=== PATIENT | female | born 1940 | race Caucasian/White ===

== ENCOUNTER → 2024-02-08 12:27 | Outpatient (REF) | payer MEDICARE, OTHER, SELFPAY ==
[2024-02-08 13:24] LABS: % Basophils 0.4 % (0-2); % Eosinophils 2.8 % (0-6); % Immature Granulocytes 0.6 % (0-0.5); % Lymphocytes 23.6 % (20.5-51.1); % Monocytes 7.8 % (1.7-9.3); % Neutrophils 64.8 % (42.2-75.2); Absolute Eosinophils 0.2 10^3/uL (0-0.7); Absolute Immature Granulocytes 0.1 10^3/uL (0-0.05); Absolute Lymphocytes 1.9 10^3/uL (1.2-3.4); Absolute Monocytes 0.6 10^3/uL (0.1-0.6); Absolute Neutrophils 5.1 10^3/uL (1.4-6.5); Hematocrit 45.2 % (37.0-47.0); Hemoglobin 15.5 g/dL (12.0-16.0); Mean Corp Hgb Conc. 34.3 g/dL (33.0-37.0); Mean Corpuscular Hgb 30.5 pg (27.0-31.0); Mean Corpuscular Volume 88.8 fL (81.0-99.0); Mean Platelet Volume 11.7 fL (7.4-10.4); Nucleated Red Blood Cells % 0 %; Platelet Count 239 10^3/uL (130-400); Red Blood Cell Count 5.09 10^6/uL (4.20-5.40); Red Cell Dist. Width 12.7 % (11.5-14.5); White Blood Cell Count 7.9 10^3/uL (4.8-10.8)
[2024-02-08 13:38] LABS: ALT (SGPT) 18 U/L (0-35); AST (SGOT) 23 U/L (14-36); Albumin 4.7 g/dl (3.5-5.0); Alkaline Phosphatase 98 U/L (38-126); Blood Urea Nitrogen 21 mg/dl (7-17); Calcium 9.7 mg/dl (8.4-10.2); Carbon Dioxide 24 mmol/L (22-30); Chloride 105 mmol/L (98-107); Glucose 87 mg/dl (70-99); Magnesium 1.8 mg/dl (1.6-2.3); Potassium 3.9 mmol/L (3.5-5.1); Sodium 138 mmol/L (135-145); Total Bilirubin 0.8 mg/dl (0.2-1.3); Total Protein 7.1 g/dl (6.3-8.2); eGFR 45.48
== END ==
LOC: SDSPAT 12:27
PROVIDERS: ATTENDING PHYSICIAN Internal Medicine Cardiovascular Disease; FAMILY PHYSICIAN Internal Medicine; OTHER PHYSICIAN Internal Medicine Cardiovascular Disease
DX: Z01.818 Encounter for other preprocedural examination (principal); I48.91 Unspecified atrial fibrillation; I48.92 Unspecified atrial flutter
CPT/HCPCS: 36415; 75572; 80053; 83735; 85025; 85610; 86850; 86900; 86901; 93005; Q9967

== ENCOUNTER 2024-02-26 05:59 | Day surgery (SDC) | payer MEDICARE, OTHER, SELFPAY ==
[2024-02-08 13:09] VITALS: BMI 29.7
[2024-02-26] VITALS (15 sets, daily range): BP systolic 98–130; BP diastolic 52–98
--- NOTE | 2024-02-26 07:43 | ITS.CL.ABL ---
Plumber Maintenance - Ablation
Ablation
Procedure Report:
Primary Environmental Officer: Sulaiman Urbina MD
Procedure Date: 02/26/2024
Patient History:
Patient is a pleasant 83-year-old female with a past medical history significant for hypertension, hypercholesterolemia, COPD, symptomatic persistent atrial fibrillation, GERD, arthritis presenting for elective electrophysiology study and cryo
pulmonary vein isolation for symptomatic persistent atrial fibrillation
Indication:
Persistent atrial fibrillation, symptomatic
Arrhythmia Specific History:
Prior Medical Therapies for Rate and Rhythm Control:
X Beta-nafisa
X Calcium channel-nafisa
[ ] Amiodarone
[ ] Dronederone
[ ] Sotalol
[ ] Flecainide
[ ] Dofetilide
[ ] Options limited by bradycardia
[ ] Options limited by comorbid renal disease
Prior Procedural Therapies for AF/AFL:
[ ] Cardioversion
[ ] Pulmonary Vein Isolation
[ ] Posterior Wall Isolation
[ ] Additional lines (Specify)
[ ] Surgical Lao-MAZE or PVI (Specify)
Procedure Performed:
X AF ablation procedure (56156) -- includes LA/CS pacing, trans-septal, 3D mapping, + ICE
[ ] +IV drug (27737)
[ ] +Other Arrhythmia (41920)
[ ] +Other AF Line/ablation (90688)
Risks and expected recovery has been explained in detail. Alternative options have been explored, and in a shared-decision making fashion we have decided that this was the most appropriate procedure.
Method
NPO status confirmed. Grounding pad applied. Defibrillator pads applied. Continuous surface ECG, pulse oximetry, and blood pressure were monitored. Procedure was performed under general anesthesia, with anesthesia services.
Both groins were clipped, prepped with Chloraprep, and draped in sterile fashion. Time out was called. Local anesthesia administered with bupivacaine. The right and left femoral veins were accessed for catheter placement, using ultrasound guidance,
micro-puncture needle/wire, and modified seldinger technique. 3 sheaths were placed. The following catheters were used:
[ ] Tacticath SE (D/F Curve) ablation catheter
X Viewflex 9Fr ICE catheter
X Inquiry decapolar 6Fr diagnostic catheter
[ ] CRD Hex 6Fr
X Arctic Front Advance Cryoballoon (28mm)
X Achieve Advance mapping catheter (15mm)
[ ] Acuson AcuNav 8 Fr ICE catheter
[ ]Other: [ ]
Intracardiac ultrasound (ICE) was carefully advanced into the right atrium to guide sheath placement over a J-wire, catheter placement, guide trans-septal puncture, identify potential complications, identify anatomic structures and ensure proper
contact between ablation catheter and tissue.
Heparin was given prior to trans-septal puncture. Heparin was given to achieve and maintain a target ACT of 300-400 seconds.
Trans-septal access was performed under ICE guidance. The trans-septal puncture was performed with a SafeSept wire through a Brockenbrough needle assembly. The wire was visualized as it entered the LSPV. The Brockenbrough needle assembly, SafeSept
wire and sheath dilator were removed under negative pressure. The Protrack pigtail wire was advanced through the sheath into the left atrium with position confirmed on ICE and fluoroscopy. The fixed curve long sheath was exchanged from the steerable
sheath over the Protrack wire and was advanced into the LA and positioned at the mitral annulus.
ICE and 3D mapping was performed to identify relevant cardiac structures. A careful 3D map was created to assess for regions of low-voltage and abnormal electrogram signals. Additional mapping was performed as outlined below. See synopsis for
details.
Cryoballoon ablation was performed using freeze/thaw/freeze at 2-4 minute intervals. Ablation targets included Cryoballoon temperatures of -30 degrees @ 30 seconds with goal temp typically between -40 and -50 degrees Celsius with time to effect when
measurable recorded to guide duration of application and need for repeat ablation in each vein. Esophageal temperature monitored throughout intervention. Phrenic nerve pacing performed during cryoapplication in the right pulmonary veins to monitor
for any evidence of PNI requiring application termination. See synopsis and procedure log for details.
Catheter and sheath were removed from the left atrium and post-ablation intracardiac echo evaluation was consistent with pre-ablation with no changes and no pericardial effusion and there is no left atrial thrombus or left ventricle thrombus seen.
Electrophysiology study was performed. Hemostasis was obtained with figure of 8 stitch for each groin with manual pressure. Protamine was used for reversal.
Estimated Blood Loss
5-10 mL
Complications
None
Procedure Synopsis:
The patient entered the room in AF. Three-dimensional mapping with EnSite system was performed with reconstruction of left atrium utilizing Achieve catheter. Intracardiac ultrasound and EnSite was used for guidance of ablation and placement of the
Cryoballoon. PV seal was confirmed with pressure waveform and ICE. Using the Achieve catheter, it was confirmed that pulmonary veins were active. All pulmonary veins were isolated successfully using Cryoballoon ablation using freeze/thaw/freeze
cycles at 2-4-minute intervals, with good [id number]-mzrxgy of isolation. During the right-sided PV ablation, phrenic nerve pacing was performed to assess the phrenic nerve strength and the phrenic nerve was intact throughout the right-sided ablation.
SR restored with cryoballoon application during RPV ablation. Pre- and post-pulmonary vein recording and pacing from the Achieve catheter was utilized to ensure complete pulmonary vein isolation. LA voltage map created at procedure conclusion
confirming WACA of bilateral PVs. Electrophysiology study was performed for reduction of atrial flutter. Patient was noted to have a concentric activation flutter with a cycle length 290-310 ms. Entrainment from proximal CS demonstrated long PPI
TCL greater than 50 ms. Electroanatomic mapping was performed with high density HD grid catheter which demonstrated breakthrough via intra-atrial septum. Entrainment from CTI demonstrated at the CTI was not part of the circuit. Given PVI,
variable cycle length, left sided AFL with slight activation variability, and no prior documented ECG of atrial flutter, patient cardioverted back to sinus rhythm with 200 J synchronized cardioversion. No other inducible arrhythmias were noted.
Will plan to monitor as outpatient if recurrence following healing of PVI.
Fluoroscopy: 13.2 minutes; 31.68 mGy; DAP 4.46
Contrast used: 0 cc
Baseline Intervals:
Rhythm: AF
QRS: 95 ms
Post-Procedure Intervals:
MS: 122 ms
QRS: 95 ms
QT: 435 ms
QTc: 445 ms
A-A: 955 ms
R-R: 955 ms
AVWB: 390 ms
AVNERP: 600/310 ms
Recommendations
- Bedrest with straight-leg precautions as ordered
- Anticipate same day discharge if patient meeting clinical metrics
- Resume home medications as indicated
- Ok to resume anticoagulation tonight if patient and groin sites stable
- PPI daily for 30 days
- Plan for follow-up in office in 4-6 weeks
Vernon Myles DO
Clinical Cardiac Supervisor [employer]
cc: Sulaiman Urbina MD; Sangita Dyson MD
[2024-02-26 09:05] LABS: ACT-LR - POC 244 Seconds (116-155)
[2024-02-26 09:23] LABS: ACT-LR - POC 384 Seconds (116-155)
[2024-02-26 09:50] LABS: ACT-LR - POC 335 Seconds (116-155)
[2024-02-26 10:29] LABS: ACT-LR - POC 358 Seconds (116-155)
[2024-02-26 11:02] LABS: ACT-LR - POC 347 Seconds (116-155)
[2024-02-26 11:16] LABS: ACT-LR - POC 141 Seconds (116-155)
[2024-02-26] MEDS: ANESTHETIC LOZENGE 1 LOZENGE PO (13:29)
--- NOTE | 2024-02-26 15:00 | W.PN.UPDATE ---
Update Note
Progress Note Update
83 yo WF s/p PVI (same day) She feels good, no cp, sob, jennifer diet, mild sore throat relief with Cepacol, b/l groins c/d/i, soft, EKG SR occ PAC's. She will continue OAC dose at 6pm at home. She will continue diltiazem and metoprolol. We will add PPI
for 30 days. She will f/u Dr. Urbina in 3 mo. She is for d/c home after 430p if groins stable.
Primary Welfare Visitor: Sulaiman Urbina MD
Procedure Date: 02/26/2024
Patient History:
Patient is a pleasant 83-year-old female with a past medical history significant for hypertension, hypercholesterolemia, COPD, symptomatic persistent atrial fibrillation, GERD, arthritis presenting for elective electrophysiology study and cryo
pulmonary vein isolation for symptomatic persistent atrial fibrillation
Indication:
Persistent atrial fibrillation, symptomatic
[2024-02-26 15:18] LABS: ACT-LR - POC > 397 Seconds (116-155)
== END 2024-02-26 16:27 | disposition home or self-care (01) ==
LOC: CATH 05:59
PROVIDERS: ATTENDING PHYSICIAN Internal Medicine Cardiovascular Disease; FAMILY PHYSICIAN Internal Medicine; OTHER PHYSICIAN Internal Medicine Cardiovascular Disease
DX: I48.19 Other persistent atrial fibrillation (principal); I10 Essential (primary) hypertension; I73.9 Peripheral vascular disease, unspecified; Z79.01 Long term (current) use of anticoagulants; J44.9 Chronic obstructive pulmonary disease, unspecified; K21.9 Gastro-esophageal reflux disease without esophagitis; M19.90 Unspecified osteoarthritis, unspecified site; E66.9 Obesity, unspecified; E78.5 Hyperlipidemia, unspecified; Z99.81 Dependence on supplemental oxygen; K55.9 Vascular disorder of intestine, unspecified; Z85.3 Personal history of malignant neoplasm of breast; I48.92 Unspecified atrial flutter; R53.83 Other fatigue; R06.02 Shortness of breath; Z87.891 Personal history of nicotine dependence; Z88.0 Allergy status to penicillin; Z88.1 Allergy status to other antibiotic agents; E78.00 Pure hypercholesterolemia, unspecified
CPT/HCPCS: C1732; C1766; C1894; C1730; C1893; C1733; C1759; 76937; 85347; 93005; 93656

== ENCOUNTER 2024-03-01 09:48 | Inpatient (IN) | payer MEDICARE, OTHER, SELFPAY ==
[2024-02-28] VITALS (8 sets, daily range): BP systolic 114–136; BP diastolic 44–64
[2024-02-28 15:05] LABS: % Basophils 0.2 % (0-2); % Immature Granulocytes 0.5 % (0-0.5); % Lymphocytes 2.8 % (20.5-51.1); % Monocytes 6.5 % (1.7-9.3); Absolute Immature Granulocytes 0.1 10^3/uL (0-0.05); Absolute Lymphocytes 0.5 10^3/uL (1.2-3.4); Absolute Monocytes 1.2 10^3/uL (0.1-0.6); Absolute Neutrophils 16.6 10^3/uL (1.4-6.5); Hematocrit 37.7 % (37.0-47.0); Hemoglobin 13.1 g/dL (12.0-16.0); Mean Corp Hgb Conc. 34.7 g/dL (33.0-37.0); Mean Corpuscular Hgb 30.8 pg (27.0-31.0); Mean Corpuscular Volume 88.5 fL (81.0-99.0); Mean Platelet Volume 11.6 fL (7.4-10.4); Nucleated Red Blood Cells % 0 %; Platelet Count 219 10^3/uL (130-400); Red Blood Cell Count 4.26 10^6/uL (4.20-5.40); Red Cell Dist. Width 13.1 % (11.5-14.5); White Blood Cell Count 18.4 10^3/uL (4.8-10.8)
[2024-02-28 15:16] LABS: ALT (SGPT) 95 U/L (0-35); AST (SGOT) 90 U/L (14-36); Albumin 4.2 g/dl (3.5-5.0); Alkaline Phosphatase 111 U/L (38-126); Blood Urea Nitrogen 22 mg/dl (7-17); Calcium 9.2 mg/dl (8.4-10.2); Carbon Dioxide 20 mmol/L (22-30); Chloride 106 mmol/L (98-107); Glucose 137 mg/dl (70-99); Lipase 53 U/L (23-300); Potassium 4.1 mmol/L (3.5-5.1); Sodium 134 mmol/L (135-145); Total Bilirubin 0.8 mg/dl (0.2-1.3); Total Protein 6.3 g/dl (6.3-8.2); eGFR > 60.00
--- NOTE | 2024-02-28 15:19 | ED.GENMED ---
History of Present Illness
General
Chief Complaint: Abdominal Symptoms
Source: patient
Exam Limitations: none
Time Seen by Provider: 02/28/24 14:34
Nursing documentation reviewed up to this point in time: agreed with
Travel History
Have you had any contact with someone who has COVID-19?: No
Do you have any symptoms of coronavirus? Fever > 100 degrees, chills, cough, shortness of breath, sore throat, loss of taste or smell, muscle aches, or headache?: No
History of Present Illness
History of Present Illness:
Patient to ED with complaint of FELIX with minimal activity. States she had a cardiac ablation on Thursday. After procedure she complained of constipation. States today she gave self a fleets enema and now reports loose stool, does not feel empty.
Notes increasing SOB since procdedure . Denies any cp/pressure. No abdominal pain.
Past History
Past History
ED Past Medical History: Arrthythmia (Atrial flutter), Cancer (Breast), COPD, GERD, HTN, Hypercholesterolemia and Other (Kidney stones, ischemic colitis, PNA, GI bleeding, Absces colon, Diverticulitis,)
ED Past Surgical History: Appendectomy and Bowel resection
Social History
Tobacco: Former smoker
Alcohol: Occasional
Drug: None
Personal:
Living: alone
Employment: Retired
Family History
Family History: Other (Noncontributory)
Review of Systems
Review of Systems
Allergies reviewed?: Yes
All Other Systems: ROS reviewed and negative except as documented in HPI and ROS
Constitutional: Reports no symptoms
EENT: Reports no symptoms
Respiratory: Reports no symptoms
Cardiac: Reports no symptoms
ABD/GI: Reports diarrhea and constipated
Musculoskeletal: Reports no symptoms
Skin: Reports no symptoms
Neurological: Reports no symptoms
Psychiatric: Reports no symptoms
Phy Exam
General Physical Exam
General Presentation: well appearing and no apparent distress
General age: appears stated age
General Skin: warm and dry
General Habitus: normal
General Mental: alert
Cardiovascular Exam
Cardiovascular Exam: regular rate/rhythm
Pulmonary Exam
Pulmonary Exam: chest non tender and decreased breath sounds
Gastrointestinal Exam
Gastrointestinal Exam: normal bowel sounds, non tender, soft and no organomegaly
Musculoskeletal Exam
Musculoskeletal Exam: full ROM and neuro vasc intact
Skin Exam
Skin Exam: normal color, warm/dry and no rash
Psychiatric Exam
Psychiatric Exam: normal mood/affect
Course
Orders/Labs/Results
Orders:
Orders
02/28/24 14:43
Complete Blood Count/With Diff Urgent
Comprehensive Metabolic Panel Urgent
Lipase Urgent
02/28/24 Dinner
Regular
At Your Request: Full Participation
02/28/24 15:18
CR Abdomen - 1 View Urgent
Comment:
Reason For Exam: constipation
CR Chest - 2 Views Urgent
Comment:
Reason For Exam: SOB
02/28/24 16:02
EKG [Electrocardiogram (*1)] Stat
Reason for Study: Shortness of Breath
EKG- Treatment ONCE
02/28/24 16:20
Ipratropium/Albuterol Sulfate [Duoneb] 3 ml INH R NOW STA
02/28/24 16:21
Urinalysis Reflex To Culture Urgent
Date Specimen was Collected: 02/29/24
Time Specimen was Collected: 09:45
02/28/24 16:44
Dexamethasone Sod Phosphate [Decadron] 10 mg IV NOW STA
02/28/24 17:45
Notify MD As Directed
Notify physician if: once med rec is done
02/28/24 17:51
COVID-19 Antigen Urgent
Source: Nasal Swab
02/28/24 17:56
Anusol Hc Suppository [Anusol Hc] 25 mg RECTAL NOW STA
02/28/24 18:04
Admit/Transfer Patient As Directed
Co-Sign Provider:
Level of Care: Observation services
Assign to:: Telemetry
Physician / Group: Hospitalist
Diagnosis: Shortness of breath
Reason for Telemetry: Arrhythmia
Date to Stop Telemetry: 03/02/24
Time to Stop Telemetry: 11:00
02/28/24 18:05
Code Status As Directed
Resuscitation Status: Full Code
02/28/24 20:03
Acetaminophen [Tylenol] 650 mg PO Q4HPRN PRN
Anusol Hc Suppository [Anusol Hc] 25 mg RECTAL BID
Apixaban [Eliquis] 5 mg PO BID
Budesonide [Pulmicort] 0.5 mg INH R BID
Docusate Sodium [Colace] 100 mg PO BID
Ipratropium Nebs [Atrovent Nebules] 0.5 mg INH R TID
Levalbuterol [Xopenex 1.25 mg Inhalant Solution] 1.25 mg INH R TID
Sennosides [Senokot] 8.6 mg PO BID
02/28/24 20:03
Respiratory Culture/Gram Stain Routine
OMAR Source: Sputum
Specimen Description:
Activity As Directed
Activity Level: Ambulate
Vital Signs As Directed
Frequency: Per unit guidelines
Xopenex Reason for Use As Directed
Reason for ordering Xopenex instead of Albuterol: takes at home
02/28/24 20:57
Troponin I Q6H
02/28/24 21:00
Flush (0.9% Sodium Chloride) [Flush (Nss)] See Dose Instructions IV PER PROTOCOL
02/28/24 21:33
Electrocardiogram (*1) Urgent
Reason for Study: CAD
EKG- Treatment ONCE
02/28/24 22:00
Atorvastatin [Lipitor] 10 mg PO HS
Cefepime HCl [Maxipime] 1,000 mg IV Q8H
Sterile Water [Sterile Water For Injection] 10 ml IV Q8H
02/28/24 23:29
Consult Cardiology [CARDIOLOGY CONSULT] Routine
Consulting Provider: Iban Arnett
Was physician already notified: No
Reason for consult: elevated trop, copd exac, ablation 02.25
02/28/24 23:30
Consult Notification Routine
Specialty to Notify: Cardiology
Date consulting provider notified: 02/29/24
Time consulting provider notified: 09:45
Notified:: Provider
02/29/24 00:00
Dexamethasone Sod Phosphate [Decadron] 4 mg IV Q6H
02/29/24 01:44
Troponin I Q6H
02/29/24 06:13
Basic Metabolic Panel IN AM
Complete Blood Count/No Diff IN AM
Magnesium IN AM
NT-proBNP Routine
Comment: ADD ON
02/29/24 08:00
Cholecalciferol (Vitamin D3) [VITAMIN D3 (cholecalciferol)] 50 mcg PO DAILY
Diltiazem Extended Release [Cardizem Cd] 360 mg PO DAILY
Pantoprazole [Protonix] 40 mg PO DAILY
Polyethylene Glycol Powder [Miralax] 17 grams PO DAILY
02/29/24 09:41
Echo 2D MMode Color/Doppler [Echo 2D MMode Color/Doppler] Routine
Reason for Study: SOB, post PVI ablation 02/26/24
Cardiology Consult: Misael August
02/29/24 09:59
Urine Microscopic Reflex Cult Urgent
Urine Culture Urgent
OMAR Source: U
Specimen Description:
Date Specimen was Collected: 02/29/24
Time Specimen was Collected: 09:45
02/29/24 10:05
Troponin I Q6H
02/29/24 10:12
Add On- LAB Routine
Tests Added?: proBNP
02/29/24 12:31
CR Abdomen - 2 Views Urgent
Comment:
Reason For Exam: Abdo pain and distension
02/29/24 12:32
ColoRectal Surgery Consult Routine
Consulting Provider: Zac Mendez
Was physician already notified: Yes
Reason for consult: concerned of thrombosed hemorrhoid
02/29/24 13:00
Lidocaine 4% Cream [Lmx 4] 1 applic TOPICAL BID
02/29/24 14:00
MetroNIDAZOLE 500 MG/100 ML [Flagyl 500 mg] 100 ml IV Q8H
02/29/24 Dinner
NPO
Allow oral meds: Yes
Allow clear liquids: No
NPO with Ice Chips: Yes
02/29/24 15:28
Pt Screening Request from Juan Routine
02/29/24 16:58
CT Abd/pel W Iv And Oral Contr Urgent
Comment:
Reason For Exam: Abdo distension-SI obstruction on Plain xray
02/29/24 18:00
Iohexol [Omnipaque] See Protocol PO ONCE ONE
Metoprolol Xl [Toprol Xl] 50 mg PO QPM
02/29/24 23:54
Bladder Scan As Directed
Follow Bladder Retention/Intermittent Cath Algorithm?: Yes
PRN if no void in __ hours: 6
Frequency: Per Retention Algorithm
If Bladder Scan Result >: 400
then:: Straight cath
Straight Cath As Directed
Frequency: Per Retention Algorithm
Additional Instructions: straight cath as needed per acute urinary retention algorithm for 24 hrs
Additional Instructions: for bladder scan greater than 400 mL
03/01/24 04:40
BMP [Basic Metabolic Panel] IN AM
03/01/24 04:41
CBC/No Diff [Complete Blood Count/No Diff] IN AM
03/01/24 08:23
CR Abdomen - 1 View Urgent
Comment:
Reason For Exam: PSBO -follow up on oral contrast transit
03/01/24 08:24
Heparin Protocol- PTT Orders As Directed
PTT per Heparin protocol: -Obtain CBC and baseline PTT - if not already collected.
-Obtain PTT 6 hours from start of infusion. Then, every 6 hours until 2 consecutive
PTT's are therapeutic. Then, PTT Daily.
-With each rate change, obtain PTT every 6 hours until 2 consecutive PTT's are
therapeutic. Then, PTT Daily.
Notify MD As Directed
Notify physician if: PTT is greater than or equal to 200.
03/01/24 08:30
Heparin 90205 Units/250 ml 25,000 units in 250 ml IV PER PROTOCOL
Weight to be used for heparin protocol in kilograms (kg):: 71.923
Protocol:: Cardiac Tx/Acute Coronary
PTT Goal Range to be used:: PTT 73 to 111 seconds
Order type:: Initial
INITIAL Infusion Dose (UNITS/KG/hr) & then follow protocol:: 12 units/kg/hr
Infusion Dose in UNITS/hr & then follow protocol (UNITS/hr):: 850
INFUSION RATE in mL/hr & then follow protocol (mL/hr):: 8.5
PTT less than or equal to 64 seconds:: Increase rate by 200 units/hr (+ 2 mL/hr)
PTT 64.1 to 72.9 seconds:: Increase rate by 100 units/hr (+ 1 mL/hr)
PTT 73 to 111 seconds:: Target Range. No change in rate.
PTT 111.1 to 130.9 seconds:: Decrease rate by 100 units/hr (- 1 mL/hr)
PTT 131 to 199.9 seconds:: HOLD for 1 hr. Then decrease rate by 200 units/hr (- 2 mL/hr)
PTT greater than or equal to 200 seconds:: HOLD for 2 hrs & Notify Provider. Then decrease by 200 units/hr (-
2 mL/hr)
Lab follow-up:: Each change, PTT q6h until 2 consecutive are therapeutic. Then PTT
daily.
03/01/24 09:02
PTT Urgent
Comment: Obtain baseline before beginning heparin infusion if not already collected
03/01/24 18:00
Dexamethasone Sod Phosphate [Decadron] 4 mg IV Q12H
03/02/24 11:00
DC Protocol for Telemetry ONCE
03/03/24 06:00
Complete Blood Count/No Diff Q2D
Comment: Notify MD if platelet count is <130,000 or decreases by 50% from baseline
03/05/24 06:00
Complete Blood Count/No Diff Q2D
Comment: Notify MD if platelet count is <130,000 or decreases by 50% from baseline
03/07/24 06:00
Complete Blood Count/No Diff Q2D
Comment: Notify MD if platelet count is <130,000 or decreases by 50% from baseline
03/09/24 06:00
Complete Blood Count/No Diff Q2D
Comment: Notify MD if platelet count is <130,000 or decreases by 50% from baseline
03/11/24 06:00
Complete Blood Count/No Diff Q2D
Comment: Notify MD if platelet count is <130,000 or decreases by 50% from baseline
03/13/24 06:00
Complete Blood Count/No Diff Q2D
Comment: Notify MD if platelet count is <130,000 or decreases by 50% from baseline
03/15/24 06:00
Complete Blood Count/No Diff Q2D
Comment: Notify MD if platelet count is <130,000 or decreases by 50% from baseline
03/17/24 06:00
Complete Blood Count/No Diff Q2D
Comment: Notify MD if platelet count is <130,000 or decreases by 50% from baseline
Abnormal Lab Results
02/28/24 02/28/24 02/29/24
14:43 20:57 01:44
WBC 18.4 H 10^3/uL
(4.8-10.8)
RBC
Hgb
Hct
MPV 11.6 H fL
(7.4-10.4)
Abs Immat Gran (auto) 0.1 H 10^3/uL
(0-0.05)
Absolute Neuts (auto) 16.6 H 10^3/uL
(1.4-6.5)
Absolute Lymphs (auto) 0.5 L 10^3/uL
(1.2-3.4)
Absolute Monos (auto) 1.2 H 10^3/uL
(0.1-0.6)
Neutrophils % 90.0 H %
(42.2-75.2)
Lymphocytes % 2.8 L %
(20.5-51.1)
APTT
Sodium 134 L mmol/L
(135-145)
Carbon Dioxide 20 L mmol/L
(22-30)
BUN 22 H mg/dl
(7-17)
Glucose 137 H mg/dl
(70-99)
AST 90 H U/L
(14-36)
ALT 95 H U/L
(0-35)
Troponin I 1.000 H* ng/ml 0.913 H* ng/ml
Ur Occult Blood Reflex
Leukocyte Esterase Rfl
Urine RBC
Urine Bacteria (Reflex)
02/29/24 02/29/24 02/29/24
06:13 09:59 10:05
WBC 16.4 H 10^3/uL
(4.8-10.8)
RBC 3.97 L 10^6/uL
(4.20-5.40)
Hgb
Hct 36.2 L %
(37.0-47.0)
MPV 11.7 H fL
(7.4-10.4)
Abs Immat Gran (auto)
Absolute Neuts (auto)
Absolute Lymphs (auto)
Absolute Monos (auto)
Neutrophils %
Lymphocytes %
APTT
Sodium 133 L mmol/L
(135-145)
Carbon Dioxide 21 L mmol/L
(22-30)
BUN
Glucose 155 H mg/dl
(70-99)
AST
ALT
Troponin I 0.591 H* ng/ml
Ur Occult Blood Reflex 4+ A
(Negative)
Leukocyte Esterase Rfl 1+ A
(Negative)
Urine RBC 11-15 A /HPF
(0-2)
Urine Bacteria (Reflex) Moderate A
(Negative)
03/01/24 03/01/24 03/01/24
04:40 04:41 09:02
WBC 12.4 H 10^3/uL
(4.8-10.8)
RBC 3.86 L 10^6/uL
(4.20-5.40)
Hgb 11.6 L g/dL
(12.0-16.0)
Hct 34.9 L %
(37.0-47.0)
MPV 11.8 H fL
(7.4-10.4)
Abs Immat Gran (auto)
Absolute Neuts (auto)
Absolute Lymphs (auto)
Absolute Monos (auto)
Neutrophils %
Lymphocytes %
APTT 36.0 H Sec
(23.4-35.0)
Sodium 134 L mmol/L
(135-145)
Carbon Dioxide 21 L mmol/L
(22-30)
BUN
Glucose 168 H mg/dl
(70-99)
AST
ALT
Troponin I
Ur Occult Blood Reflex
Leukocyte Esterase Rfl
Urine RBC
Urine Bacteria (Reflex)
03/01/24 04:41
03/01/24 04:40
Vital Signs
Initial and Last Documented VS:
Initial Vital Signs
Pulse Resp BP Pulse Ox
77 30 136/60 93
02/28/24 14:28 02/28/24 14:28 02/28/24 14:28 02/28/24 14:28
Last Documented Vital Signs
Temp Pulse Resp BP Pulse Ox
98.3 F 55 16 101/72 95
03/01/24 19:51 03/01/24 20:27 03/01/24 20:27 03/01/24 17:33 03/01/24 20:00
*Radiology
Radiology exam reviewed: radiology read reviewed
*Pulse Oximetry
Patient hypoxic: yes
*Critical Care Note
Total Time (30-74mins, 75-104mins- exclusive of procedures): Not Applicable
Update Note
Update Note:
Patient to ED from home for increasing SOB. Had cardiac ablation on Thursday. [place] well until this AM when her breathing became labored. Hx of COPD. Use O2 2L NC overnight only. Denies any CP/pressure, cough, fever/chills. No edema. On eliquis,
PE unklikely. EKG NSR, no tachycardia. WIll admit to hospitalist. Duoneb, IV decadron given. WBC 18. CXR without evidence of pneumonia. UA pending.
ED Attending Note
-
Portions of this chart may have been created with voice recognition software.� Occasional wrong word or��sound alike� substitutions may have occurred due to the inherent limitations of voice recognition software.
Discharge Plan
Departure
Patient Disposition: Admit
Date of Disposition: 02/28/24
Time of Disposition: 16:45
Presentation/result/management discussed w/ accepting MD/DO: Hospitalist
Condition: Fair
Covid-19: Not Applicable
Discharge Problem:
FELIX (dyspnea on exertion), COPD exacerbation
Interventions
Interventions:
*Risk Screen - Suicide Last Done: 02/28/24 14:33
*General Assessment Last Done: 02/28/24 14:33
*Neglect/Abuse Screening Last Done: 02/28/24 14:33
ED- Fall Risk Assessment Last Done: 02/28/24 14:33
*ED COVID-19 Vaccine History Last Done: 02/28/24 14:33
*Nursing Disposition Last Done: 02/29/24 12:59
DQ-Gqjwih-Hngzzvvdvm Assessment Last Done: 02/28/24 14:33
Discharge Date and Time
Discharge Date/Time: 02/29/24 13:00
[2024-02-28] MEDS: DUONEB 3 ML INH (16:45)
[2024-02-28] MEDS: DECADRON 10 MG IV (16:57)
--- NOTE | 2024-02-28 17:40 | HPS.HSE ---
Family Physician
-
Family Physician: Sangita Dyson
Chief Complaint
-
Rectal pain and shortness of breath
History of Present Illness
83-year-old female admitted comes in to the ER with dyspnea on exertion. She had an ablation on Thursday she has had increasing shortness of breath since the procedure. Called percussion teacher who also to go to ER. Patient also stated that she has been
constipated had a bowel movement today but she has a lot of rectal pain today. Denies any chest pain. Last bowel movement was today.
Medical History
Past Medical History
Past Medical History: Reports Other
Additional Past Medical History:
COPD, atrial fibrillation/flutter, hypertension, hyperlipidemia, diverticulosis, GERD, history of ischemic colitis, nephrolithiasis, arthritis, history of breast cancer
Past Surgical History: Reports Other
Additional Past Surgical History:
Left lumpectomy, right lumpectomy, appendectomy, colon resection, cystoscopy
Social History
Tobacco: Former Smoker
Alcohol: Other (Uses hard liquor twice a week)
Drug: None
Living: Alone
Employment: Retired
Family History
Family History: CAD (Father) and Other (Mother of old age.)
Allergies / Home Medications
Allergies reflects when Allergies were last updated in [employer].
Home Medications with original date entered in [employer]
Allergy/Medication List:
Allergies
Allergy/AdvReac Type Severity Reaction Status Date / Time
amoxicillin Allergy Mild Nausea / Verified 02/26/24 07:15
Vomiting
levofloxacin [From Levaquin] Allergy Hives Verified 02/26/24 07:15
Home Medications
atorvastatin 10 mg tablet 10 mg PO HS High cholesterol 12/15/18
apixaban 5 mg tablet (Eliquis) 5 mg PO BID #60 tabs 09/01/20
albuterol sulfate 90 mcg/actuation aerosol inhaler 2 puff inhalation R Q6HPRN PRN sob 11/17/23
budesonide 0.5 mg/2 mL suspension for nebulization 0.5 mg inhalation R BID Lung/Breathing Issues 11/17/23
cholecalciferol (vitamin D3) 50 mcg (2,000 unit) tablet 50 mcg PO DAILY Supplement 11/17/23
ipratropium bromide 0.02 % solution for inhalation 2.5 ml inhalation R TIDPRN PRN sob 11/17/23
ipratropium bromide 42 mcg (0.06 %) nasal spray 2 spray intranasal BIDPRN PRN runny nose 11/17/23
levalbuterol HCl 1.25 mg/3 mL solution for nebulization 1.25 mg inhalation R TID Lung/Breathing Issues 11/17/23
metoprolol succinate 50 mg capsule sprinkle, ext. release 24 hr 50 mg PO QPM BLOOD PRESSURE 12/08/23
diltiazem HCl 360 mg capsule,extended release 24 hr 360 mg PO DAILY 02/26/24
pantoprazole 40 mg tablet,delayed release (Protonix) 40 mg PO DAILY #30 tabs 02/26/24
Review of Systems
-
A 12 point ROS was completed and negative except as noted: Yes
Respiratory: Reports Trouble Breathing
Cardiac: Denies Chest Pain or Palpitations
Abdomen/GI: Reports Other (rectal pain); Denies Abdominal Pain
Physical Exam
Vital Signs
Vital Signs
Temp Pulse Resp BP Pulse Ox
98.2 F 65 26 136/60 98
02/28/24 14:33 02/28/24 15:00 02/28/24 15:00 02/28/24 14:28 02/28/24 14:45
Physical Exam
General: Conversant and Respiratory Distress (mild)
Respiratory: Decreased Breath Sounds
Cardiac: S1/S2
GI: Soft, Non Tender and Normal Bowel Sounds
Neuro: AO x 3 and Nonfocal/grossly intact
Psych: Intact Judgment/Insight
Laboratory Results
-
02/28/24 14:43
02/28/24 14:43
Laboratory Results
Total Bilirubin 0.8 mg/dl (0.2-1.3) 02/28/24 14:43
AST 90 U/L (14-36) H 02/28/24 14:43
ALT 95 U/L (0-35) H 02/28/24 14:43
Alkaline Phosphatase 111 U/L (38-126) 02/28/24 14:43
Lipase 53 U/L (23-300) 02/28/24 14:43
Data Reviewed
-
Diagnostic Radiology: Image Personally Visualized and interpreted (Chest x-ray reviewed by me-no acute changes findings consistent with COPD) and Other (X-ray of the abdomen-nonobstructive bowel gas pattern)
Medical Tests (Nuc Med, Echo, EKG etc): Image Personally Visualized and interpreted (EKG-sinus rhythm with PVCs)
Impression/Plan
-
IMPRESSION/PLAN:
# Shortness of breath
COPD exacerbation versus other
Nebulizer treatments with levalbuterol and ipratropium
Continue budesonide
Admit
IV steroids Decadron 4 every 8
Antibiotics given rreyzciqhbri-[id number]-sbomcdjlrlv causes nausea and vomiting. No true allergy
Cardiology evaluation with recent ablation
No signs of heart failure at present
# Constipation
Bowel regimen
Rectal pain-Anusol suppository ordered
# Atrial flutter/fibrillation
Continue Eliquis and Cardizem and metoprolol
# Hyperlipidemia-continue statin
# Hypertension-continue metoprolol
# History of breast cancer with bilateral lumpectomy
# Diverticulosis. History of GI bleed. History of ischemic colitis
# Nephrolithiasis
# Arthritis with history of pelvic fractures in the past
# Ex-smoker
# Patient wants to be full code
# DVT prophylaxis-Eliquis
Discussed with RN at bedside
--- NOTE | 2024-02-28 17:50 | PHANOTE ---
med rec note- asked patient about home medication, did ask patient about her diltiazem cd 240mg but she say she still takes 360mg daily. did explain that they were both filled in the same month about 10 day apart and 240mg were filled 02/27/24,
patient may not have picked them up but she does not take it
[2024-02-28 18:14] LABS: COVID-19 Antigen Negative (Negative)
[2024-02-28] MEDS: ANUSOL HC 25 MG RECTAL (19:48)
[2024-02-28] MEDS: XOPENEX 1.25 MG INHALANT SOLUTION INH (21:12)
[2024-02-28] MEDS: PULMICORT 0.5 MG INH (21:12)
[2024-02-28] MEDS: ATROVENT NEBULES 0.5 MG INH (21:12)
[2024-02-28] MEDS: ANUSOL HC RECTAL (21:19)
[2024-02-28] MEDS: SENOKOT PO (22:03)
[2024-02-28] MEDS: COLACE PO (22:03)
[2024-02-28] MEDS: MAXIPIME 1000 MG IV (22:13)
[2024-02-28] MEDS: STERILE WATER FOR INJECTION 10 ML IV (22:14)
[2024-02-28] MEDS: LIPITOR 10 MG PO (22:14)
[2024-02-28] MEDS: ELIQUIS 5 MG PO (22:14)
[2024-02-29] VITALS (8 sets, daily range): BP systolic 108–154; BP diastolic 57–73; BMI 30.5
[2024-02-29] MEDS: TYLENOL 650 MG PO (01:48)
[2024-02-29] MEDS: DECADRON 4 MG IV ×4 (01:49→17:59)
[2024-02-29 02:20] LABS: Troponin I 0.913 ng/ml
[2024-02-29] MEDS: MAXIPIME 1000 MG IV ×2 (06:40→15:00)
[2024-02-29] MEDS: STERILE WATER FOR INJECTION 10 ML IV ×2 (06:40→15:00)
[2024-02-29 06:50] LABS: Hematocrit 36.2 % (37.0-47.0); Hemoglobin 12.2 g/dL (12.0-16.0); Mean Corp Hgb Conc. 33.7 g/dL (33.0-37.0); Mean Corpuscular Hgb 30.7 pg (27.0-31.0); Mean Corpuscular Volume 91.2 fL (81.0-99.0); Mean Platelet Volume 11.7 fL (7.4-10.4); Platelet Count 158 10^3/uL (130-400); Red Blood Cell Count 3.97 10^6/uL (4.20-5.40); Red Cell Dist. Width 13.2 % (11.5-14.5); White Blood Cell Count 16.4 10^3/uL (4.8-10.8)
[2024-02-29 07:28] LABS: Blood Urea Nitrogen 14 mg/dl (7-17); Carbon Dioxide 21 mmol/L (22-30); Chloride 106 mmol/L (98-107); Estimated Creatinine Clearance 57 ml/min; Glucose 155 mg/dl (70-99); Magnesium 1.9 mg/dl (1.6-2.3); Sodium 133 mmol/L (135-145); eGFR > 60.00
[2024-02-29] MEDS: PULMICORT 0.5 MG INH ×2 (08:12→18:31)
[2024-02-29] MEDS: ATROVENT NEBULES 0.5 MG INH ×3 (08:12→18:31)
[2024-02-29] MEDS: XOPENEX 1.25 MG INHALANT SOLUTION INH ×3 (08:13→18:31)
[2024-02-29] MEDS: MIRALAX 17 GRAMS PO (09:31)
[2024-02-29] MEDS: ANUSOL HC 25 MG RECTAL (09:31)
[2024-02-29] MEDS: CARDIZEM CD 360 MG PO (09:32)
[2024-02-29] MEDS: ELIQUIS 5 MG PO (09:32)
[2024-02-29] MEDS: PROTONIX 40 MG PO (09:32)
[2024-02-29] MEDS: COLACE 100 MG PO (09:33)
[2024-02-29] MEDS: SENOKOT 8.59999999999999964 MG PO (09:33)
[2024-02-29] MEDS: VITAMIN D3 (cholecalciferol) 50 MCG PO (09:33)
--- NOTE | 2024-02-29 09:40 | CON.CAR ---
Addendum entered and electronically signed by Wade Johnson DO 02/29/24 13:55:
I saw and examined the patient.
The Lead Burner Helper's note was reviewed and I agree with the note.
Comment:
Plan:
Reviewed her recent PVI. She remains in sinus rhythm. Continue anticoagulation.
Check echo to reevaluate EF and pericardium.
Minimal troponin, already improving, likely secondary to procedure and not an acute coronary event.
Tx of constipation as per primary service.
Discussed with family at bedside.
Original Note:
Consultation
Consultation Request
Date/Time Consultation Requested: 02/28/2024
Date/Time Consultation Performed: 02/29/2024
Requesting Provider: Dr. Arriaga
Performing Provider: Romana Mc PA-C for Dr. EVA August
Reason for Consultation: Shortness of breath
Medical History
-
History of Present Illness:
Patient is a pleasant 83-year-old female with a past medical history significant for hypertension, hypercholesterolemia, COPD, symptomatic persistent atrial fibrillation, GERD, arthritis who presented to emergency department 02/28/2024 with acute
shortness of breath, abdominal pain and rectal discomfort. Patient underwent successful PVI ablation on 02/26/2024. She reports she felt well upon discharge and the following day. However on 02/28/2024 she awoke with acute shortness of breath. She
also reports she had mild abdominal discomfort with severe constipation and had difficulty having a bowel movement. She reports she strained to have a BM for several hours and had some mild blood on toilet paper after her bowel movement associated
with rectal pain. Both shortness of breath and rectal pain caused her to present to emergency department. Patient was found to have leukocytosis with elevated white count of 18.4. EKG showed sinus rhythm with incomplete right bundle branch block,
nonspecific ST-T wave abnormality. Abnormal troponin peak 1.0. Chest x-ray showed no acute cardiopulmonary disease with stable COPD/hyperinflation. Patient was provided nebulizer and started on IV steroids. She is also given cefepime and
amoxicillin.
At time of this evaluation patient continues to have mild shortness of breath at rest. Her biggest complaint is mild abdominal discomfort as well as significant rectal pain. She denies chest pain, dizziness, lightheadedness, palpitations
Past medical history:
COPD with chronic nocturnal oxygen therapy
Paroxysmal atrial fibrillation/flutter
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
Chronic anticoagulation with Eliquis
Hypertension
Hyperlipidemia
Diverticulosis
Ischemic colitis status post colon resection
GERD
Nephrolithiasis
Arthritis
History of breast cancer status post bilateral lumpectomies, right radical mastectomy with XRT
Past Medical History
Past Medical History: Other (See HPI)
Past Surgical History: Appendectomy and Other (Bilateral lumpectomies with right radical mastectomy and history of XRT, colon resection, cystoscopy w/ urethral stent)
Social History
Tobacco: Former Smoker
Alcohol: Occasional (Has hard alcohol twice a week)
Drug: None
Personal:
Living: Alone
Employment: Retired
Family History
Family History: CAD (Father) and Cancer (Mother uterine cancer)
Allergies / Home Medications
Allergy/AdvReac Type Severity Reaction Status Date / Time
amoxicillin Allergy Mild Nausea / Verified 02/26/24 07:15
Vomiting
levofloxacin [From Levaquin] Allergy Hives Verified 02/26/24 07:15
�Medication �Instructions �Recorded �Confirmed �Type
atorvastatin 10 mg tablet 10 mg PO HS High cholesterol 12/15/18 02/28/24 History
apixaban 5 mg tablet (Eliquis) 5 mg PO BID #60 tabs 09/01/20 02/28/24 Rx
albuterol sulfate 90 mcg/actuation 2 puff inhalation R Q6HPRN PRN sob 11/17/23 02/28/24 History
aerosol inhaler
budesonide 0.5 mg/2 mL suspension 0.5 mg inhalation R BID 11/17/23 02/28/24 History
for nebulization Lung/Breathing Issues
cholecalciferol (vitamin D3) 50 50 mcg PO DAILY Supplement 11/17/23 02/28/24 History
mcg (2,000 unit) tablet
ipratropium bromide 0.02 % 2.5 ml inhalation R TIDPRN PRN sob 11/17/23 02/28/24 History
solution for inhalation
ipratropium bromide 42 mcg (0.06 2 spray intranasal BIDPRN PRN 11/17/23 02/28/24 History
%) nasal spray runny nose
levalbuterol HCl 1.25 mg/3 mL 1.25 mg inhalation R TID 11/17/23 02/28/24 History
solution for nebulization Lung/Breathing Issues
metoprolol succinate 50 mg capsule 50 mg PO QPM BLOOD PRESSURE 12/08/23 02/28/24 History
sprinkle, ext. release 24 hr
diltiazem HCl 360 mg 360 mg PO DAILY 02/26/24 02/28/24 History
capsule,extended release 24 hr
pantoprazole 40 mg tablet,delayed 40 mg PO DAILY #30 tabs 02/26/24 02/28/24 Rx
release (Protonix)
Review of Systems
-
History Source: Patient
All other systems: Negative unless noted
Physical Exam
Vital Signs
Temp Pulse Resp BP Pulse Ox
98.9 F 93 26 154/70 94
02/29/24 07:00 02/29/24 09:32 02/29/24 08:19 02/29/24 09:32 02/29/24 08:19
GEN: No distress but winded during conversation was pursed lip breathing, awake, Ox3,
HEENT: supple, anicteric, mmm
LUNGS: Mildly diminished BS bilaterally, no wheezes/rales; wearing 2 lpm NC
CV: Reg, S1/S2, 1/6 syst LSB, no murmur
ABD: firm with mild distension, BS+, NT/ND
EXT: No edema, clubbing or cyanosis
NEURO: Gross non-focal
SKIN: No rash, warm, dry
Lab Results
02/29/24 06:13
02/29/24 06:13
Troponin I 0.913 ng/ml H* 02/29/24 01:44
Impression / Plan
-
PCP: Sangita Dyson
Manufacturing Engineer Chief: Sulaiman Urbina
Shake Loader: Vernon Myles
Impression:
Presented 02/28/2024 with acute shortness of breath and abdominal discomfort
Acute hypoxic respiratory insufficiency
Abnormal troponin, peaked 1.0, suspect nonischemic myocardial injury secondary to recent PVI ablation
Leukocytosis
Constipation
Rectal pain
COPD with chronic nocturnal oxygen therapy
Paroxysmal atrial fibrillation/flutter
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
Chronic anticoagulation with Eliquis
Hypertension
Hyperlipidemia
Diverticulosis
Ischemic colitis status post colon resection
GERD
Nephrolithiasis
Arthritis
History of breast cancer status post bilateral lumpectomies, right radical mastectomy with XRT
Echo 09/19/2020: EF 62%. No regional wall motion abnormalities. Mild MR. Mild tricuspid regurgitation, PAP 38 mmHg
7-day outpatient monitor completed 12/03/2023: Sinus rhythm with paroxysmal atrial fibrillation/flutter approximately 15 1% burden. 11 episodes of atrial tachycardia, rare PAC and PVC
Plan:
-Presented 02/28/2024 with acute shortness of breath and abdominal discomfort.
-Acute hypoxic respiratory insufficiency/SOB. Suspect COPD exacerbation. Continue IV steroids and nebulizer per primary service.
-Still appears short of breath with pursed lipped breathing and some difficulty with conversation. Currently on 2 L oxygen via nasal cannula. Wean as tolerated
-Check ProBNP
-Abnormal troponin, peaked 1.0. EKG shows sinus rhythm with incomplete right bundle branch block, nonspecific T wave abnormality. Suspect nonischemic myocardial injury secondary to recent PVI ablation
-Paroxysmal atrial fibrillation/flutter. Maintained on chronic anticoagulation with Eliquis. Underwent recent PVI ablation 02/26/2024. Will check echocardiogram given shortness of breath.
-Leukocytosis, unclear etiology. Could be postinflammatory process from recent PVI. Patient is getting IV antibiotics per primary service
-Complains of abdominal discomfort with constipation and difficulty having BM 02/28/2024 with significant straining and mild blood on toilet tissue after having bowel movement 02/28/24. Patient does have history of hemorrhoids and now complaining of
rectal pain. Treatment with Anusol suppository and bowel med regimen per primary service.
HPI 02/29/2024:
Patient is a pleasant 83-year-old female with a past medical history significant for hypertension, hypercholesterolemia, COPD, symptomatic persistent atrial fibrillation, GERD, arthritis who presented to emergency department 02/28/2024 with acute
shortness of breath, abdominal pain and rectal discomfort. Patient underwent successful PVI ablation on 02/26/2024. She reports she felt well upon discharge and the following day. However on 02/28/2024 she awoke with acute shortness of breath. She
also reports she had mild abdominal discomfort with severe constipation and had difficulty having a bowel movement. She reports she strained to have a BM for several hours and had some mild blood on toilet paper after her bowel movement associated
with rectal pain. Both shortness of breath and rectal pain caused her to present to emergency department. Patient was found to have leukocytosis with elevated white count of 18.4. EKG showed sinus rhythm with incomplete right bundle branch block,
nonspecific ST-T wave abnormality. Abnormal troponin peak 1.0. Chest x-ray showed no acute cardiopulmonary disease with stable COPD/hyperinflation. Patient was provided nebulizer and started on IV steroids. She is also given cefepime IV.
At time of this evaluation patient continues to have mild shortness of breath at rest. Her biggest complaint is mild abdominal discomfort as well as significant rectal pain. She denies chest pain, dizziness, lightheadedness, palpitations
[2024-02-29 10:13] LABS: Urine Albumin Trace (Neg - Trace); Urine Bilirubin Negative (Negative); Urine Character Clear (Clear); Urine Color Yellow; Urine Glucose Negative (Negative); Urine Ketone Negative (Negative); Urine Leukocyte 1+ (Negative); Urine Nitrite Negative (Negative); Urine Occult Blood 4+ (Negative); Urine Urobilinogen Negative (Neg - 1+)
[2024-02-29 10:34] LABS: Urine Bacteria Moderate (Negative)
[2024-02-29 10:43] LABS: Troponin I 0.591 ng/ml
[2024-02-29 11:11] LABS: NT-proBNP 1340 pg/ml
--- NOTE | 2024-02-29 12:43 | W.PN.HOSP.TC ---
Addendum entered and electronically signed by Osbaldo Gallardo MD 02/29/24 16:57:
Will hold Eliquis as she might need hemorrhoid surgery if still very painful.
Original Note:
Today's Communication/Plan
-
Obtain a plain x-ray. Clear liquid diet for now. Continue with cefepime and Flagyl.
Consult colorectal surgery for hemorrhoids.
Assessment / Plan
Assessment / Plan
# Acute rectal pain secondary to hemorrhoid prolapse. She has 1 at 3:00 which is very painful but not purple at times. She has history of hemorrhoids. She had bleeding episodes at home. Acute is noted since yesterday. Continue with Anusol
symptomatic treatment. Consult colorectal surgery to evaluate for any thrombosed hemorrhoids or if she needs any surgical intervention. Apply topical lidocaine along with Anusol.
#Abdominal discomfort-she complains of lower abdominal discomfort and diarrhea with hemorrhoid related but she is distended with nausea. Will obtain a plain abdominal x-ray to rule out any ileus. She also has been constipated. Will consider CT
scan of the abdomen pelvis depending on her progress.
Will keep her on clear liquid diet for now. Continue with laxative regimen.
#Leukocytosis concern is a bedside hemorrhoid related or GI related. Currently on cefepime-add Flagyl
# Shortness of breath
Suspected on admission-COPD exacerbation
Currently not bronchospastic. Continue with nebs. Start on steroid taper.
# Atrial flutter/fibrillation
Continue Eliquis and Cardizem and metoprolol
# Hyperlipidemia-continue statin
# Hypertension-continue metoprolol
# History of breast cancer with bilateral lumpectomy
# Diverticulosis. History of GI bleed. History of ischemic colitis
# Nephrolithiasis
# Arthritis with history of pelvic fractures in the past
# Ex-smoker
# Patient wants to be full code
# DVT prophylaxis-Eliquis
Discussed with family at bedside.
Discussed with RN.
Total time spent on today's encounter was 52 minutes which included time spent in counseling the patient/family regarding diagnosis and treatment plan as listed above, goals of care, and symptom management. Case was discussed with nursing staff,
specialists, and care coordinators/ All labs and imaging personally reviewed by me. Remainder the time spent in detailed review of previous records, lab data, imaging, and other medical provider documentation.
Anticipated Discharge: > 48 hours
Subjective/Interval History
-
Date of Service: February 29, 2024
Feeling bit nauseous especially when she has anything to eat. Abdomen is slightly distended. Lower abdominal discomfort noted. Still has a lot of rectal pain. Breathing is comfortable. No cough. No chest pain or palpitations.
Objective Data
-
Labs:
Laboratory Results
02/29/24
06:13
WBC 16.4 H
Hgb 12.2
Hct 36.2 L
Plt Count 158 D
Sodium 133 L
Potassium 4.0
Chloride 106
Carbon Dioxide 21 L
BUN 14
Creatinine 0.7
Glucose 155 H
Calcium 9.0
Vital Signs:
Vital Signs
Temp Pulse Resp BP Pulse Ox
98.9 F 95 25 154/70 95
02/29/24 07:00 02/29/24 10:00 02/29/24 10:00 02/29/24 09:32 02/29/24 09:30
Review of Systems
-
Constitutional: Denies Fever
EENT: Denies Sore Throat
Respiratory: Denies Cough
Neuro: Denies Dizzy
Physical Exam
-
General: No Apparent Distress
HEENT: Moist Mucous Membranes
Respiratory: Non Labored Respirations; Negative Wheezes, Crackles or Accessory Resp Muscle Use
Cardiac: Regular Rhythm and S1/S2
GI: Soft, Tender (Lower abdomen in LLQ but no rebound or guarding) and Distended
Rectal: Hemorrhoids (at 3 o clock, painful one but not purple or tense)
Neuro: AO x 3
Psych: Calm
Data Reviewed
-
Labs: Labs Reviewed by me
--- NOTE | 2024-02-29 13:29 | PTCARENOTE ---
patient arrived from ED with NO, CP, SOB, or c/o pain. patient did say that she has hemorrhoids which at times are painful. patients abd. is distended with hypoactive BS, no flatus, inc. of urine, patient requested pure wick due to pain when she
walks in anus. monitor placed, NSR, VSS. patient oriented to room and surroundings. family at bedside.
--- NOTE | 2024-02-29 14:03 | PTCARENOTE ---
echo being done at bedside.
--- NOTE | 2024-02-29 14:45 | CM ---
Chart reviewed. Patient is independent of ADLS, lives alone in a [address] [facility], [address], has a chair lift in the home and also wears O2 2l over night. Patient uses [facility]. Patient is not current with VN, but would like VN. Patient has
used [facility] in the past and would like to use them again. Plans is for the patient to return home with [facility].. CM to follow
[2024-02-29] MEDS: FLAGYL 500 MG 100 IV ×2 (14:54→21:51)
[2024-02-29] MEDS: LMX 4 TOPICAL (14:58)
[2024-02-29] MEDS: FLUSH (NSS) 1 FLUSH IV ×2 (15:01→18:01)
[2024-02-29] MEDS: TOPROL XL 50 MG PO (17:58)
[2024-02-29] MEDS: OMNIPAQUE 50 ML PO (18:11)
--- NOTE | 2024-02-29 18:14 | PTCARENOTE ---
patient is scheduled for CT abd/pelvis with IV contrast and oral contrast. Omnipaque started at 1811, CT scanner aware.
--- NOTE | 2024-02-29 20:00 | PTCARENOTE ---
Assumed care of patient. NSR with PACs, PVCs. VSS. RA. Abdomen round, distended, firm and tender. PO contrast administered on prior shift. Awaiting CT scan around 2014. Assessment per nursing flowsheet
--- NOTE | 2024-02-29 21:49 | PTCARENOTE ---
PDalton notified pt is due for PO medications, diet is ordered NPO. CT abd/pelvis completed to R/O SBO. Pt c/o of some nausea earlier but has subsided. Hold PO medications for now until read on CT per conversation
[2024-02-29] MEDS: SENOKOT PO (21:51)
[2024-02-29] MEDS: LMX 4 1 APPLIC TOPICAL (21:51)
[2024-02-29] MEDS: COLACE PO (21:51)
[2024-02-29] MEDS: LIPITOR PO (22:01)
[2024-03-01] VITALS (8 sets, daily range): BP systolic 99–136; BP diastolic 50–72
[2024-03-01] MEDS: MAXIPIME 1000 MG IV ×4 (00:14→23:04)
[2024-03-01] MEDS: STERILE WATER FOR INJECTION 10 ML IV ×4 (00:15→23:04)
[2024-03-01] MEDS: DECADRON 4 MG IV ×2 (00:27→06:44)
--- NOTE | 2024-03-01 00:31 | PTCARENOTE ---
Addendum entered by Mitchell Arellano RN 03/01/24 00:54:
Abdomen distended, tender left abdomen. Hypoactive BS. Bladder scan 828, straight cath for 800 cc of yellow urine. Attends saturated with urine
Original Note:
Abdomen distended, tender left abdomen. Hypoactive BS. Bladder scan 828, straight cath for 800 cc of yellow urine.
[2024-03-01] MEDS: FLAGYL 500 MG 100 IV ×3 (05:01→21:34)
[2024-03-01 05:04] LABS: Hematocrit 34.9 % (37.0-47.0); Hemoglobin 11.6 g/dL (12.0-16.0); Mean Corp Hgb Conc. 33.2 g/dL (33.0-37.0); Mean Corpuscular Hgb 30.1 pg (27.0-31.0); Mean Corpuscular Volume 90.4 fL (81.0-99.0); Mean Platelet Volume 11.8 fL (7.4-10.4); Platelet Count 160 10^3/uL (130-400); Red Blood Cell Count 3.86 10^6/uL (4.20-5.40); Red Cell Dist. Width 13.1 % (11.5-14.5); White Blood Cell Count 12.4 10^3/uL (4.8-10.8)
[2024-03-01 05:30] LABS: Blood Urea Nitrogen 14 mg/dl (7-17); Calcium 9.4 mg/dl (8.4-10.2); Carbon Dioxide 21 mmol/L (22-30); Chloride 106 mmol/L (98-107); Estimated Creatinine Clearance 66 ml/min; Glucose 168 mg/dl (70-99); Sodium 134 mmol/L (135-145); eGFR > 60.00
[2024-03-01] MEDS: ATROVENT NEBULES 0.5 MG INH (07:13)
[2024-03-01] MEDS: XOPENEX 1.25 MG INHALANT SOLUTION INH ×3 (07:13→20:24)
[2024-03-01] MEDS: PULMICORT 0.5 MG INH ×2 (07:13→20:24)
[2024-03-01] MEDS: VITAMIN D3 (cholecalciferol) 50 MCG PO (08:52)
[2024-03-01] MEDS: PROTONIX 40 MG PO (08:52)
[2024-03-01] MEDS: MIRALAX 17 GRAMS PO (08:52)
[2024-03-01] MEDS: CARDIZEM CD 360 MG PO (08:52)
[2024-03-01] MEDS: SENOKOT 8.59999999999999964 MG PO ×2 (08:52→20:10)
[2024-03-01] MEDS: COLACE 100 MG PO ×2 (08:52→20:10)
[2024-03-01] MEDS: LMX 4 1 APPLIC TOPICAL ×2 (08:54→20:13)
--- NOTE | 2024-03-01 10:05 | W.PN.HOSP.TC ---
Today's Communication/Plan
-
Keep NPO. Start on IV fluids. Obtain plain abdominal x-ray to follow on transit of the contrast.
Continue with antibiotics.
Colorectal surgery eval pending.
Anticoagulation per cardiology.
Assessment / Plan
Assessment / Plan
#Acute rectal pain secondary to prolapsed hemorrhoid, proctitis and perirectal inflammation. Associated leukocytosis noted. Improving pain and leukocytosis with antibiotics and hemorrhoidal treatment. Colorectal surgery eval pending.
#Abdominal distention with discomfort-CT abdomen pelvis raises concern for ileus versus partial small bowel obstruction. Patient passing flatus today. Check a follow-up abdominal x-ray for transit of the contrast. Keep her n.p.o. Continue with
oral medication.
# Shortness of breath
Suspected on admission-COPD exacerbation
Not bronchospastic again today. I suspect his shortness of breath may be secondary to abdominal distention. Hold further steroids. Use as needed nebulizers.
# Atrial flutter/fibrillation
Continue Cardizem and metoprolol
Eliquis on hold due to acute GI issues. Consider IV heparin if appropriate by cardiology
# Hyperlipidemia-continue statin
# Hypertension-continue metoprolol
# History of breast cancer with bilateral lumpectomy
# Diverticulosis. History of GI bleed. History of ischemic colitis
# Nephrolithiasis
# Arthritis with history of pelvic fractures in the past
# Ex-smoker
# Patient wants to be full code
# DVT prophylaxis-Eliquis
Discussed Cardiology Dr Arnett.
Total time spent on today's encounter was 52 minutes which included time spent in counseling the patient regarding diagnosis and treatment plan as listed above, goals of care, and symptom management. Case was discussed with nursing staff,
specialists, All labs and imaging personally reviewed by me. Remainder the time spent in detailed review of previous records, lab data, imaging, and other medical provider documentation.
Anticipated Discharge: > 48 hours
Subjective/Interval History
-
Date of Service: March 01, 2024
Improving rectal pain.
Still feels bloated in her abdomen. Not much appetite but no nausea or vomiting today. No BM. But passing flatus.
Not short of breath today.
Objective Data
-
Labs:
Laboratory Results
03/01/24 03/01/24 03/01/24
04:40 04:41 09:02
WBC 12.4 H
Hgb 11.6 L
Hct 34.9 L
Plt Count 160
APTT 36.0 H
Sodium 134 L
Potassium 4.0
Chloride 106
Carbon Dioxide 21 L
BUN 14
Creatinine 0.6
Glucose 168 H
Calcium 9.4
Vital Signs:
Vital Signs
Temp Pulse Resp BP Pulse Ox
98 F 70 18 123/61 98
03/01/24 06:52 03/01/24 08:52 03/01/24 07:18 03/01/24 08:52 03/01/24 07:18
I&O
02/29/24 03/01/24 03/02/24
06:59 06:59 06:59
Intake Total 830 / 830
Output Total 1000 / 1000
Balance -170 / -170
Review of Systems
-
Constitutional: Denies Fever
Respiratory: Denies Cough
Cardiac: Denies Chest Pain
Neuro: Denies Dizzy
Physical Exam
-
General: No Apparent Distress
HEENT: Moist Mucous Membranes
Respiratory: Clear to Auscultation; Negative Wheezes or Crackles
Cardiac: Regular Rhythm and S1/S2
GI: Soft, Nontender and Distended; Negative Normal Bowel Sounds (high pitched)
Neuro: AO x 3
Psych: Calm
Data Reviewed
-
CT Scan: Report Reviewed by me (CT head)
Labs: Labs Reviewed by me
[2024-03-01] MEDS: HEPARIN 25000 UNITS/250 ML IV (10:09)
--- NOTE | 2024-03-01 10:54 | PTCARENOTE ---
CR of abd. completed. patient presently sitting up in chair with assist x 1 to ambulate to chair. IV heparin started at 850units/hr infusing without difficulties.
[2024-03-01] MEDS: D5/0.45%NACL 1000 IV (11:23)
--- NOTE | 2024-03-01 12:29 | CM ---
Chart reviewed. Patient is independent of ADLS, lives alone in a [address] [facility], [address] [facility], has a chair lift and also wears O2 2l overnight. Patient uses [employer] [facility] [employer]. Patient would like a VN. Referral sent to [facility]. Plan is for the patient
to return home with [facility]. CM to follow
--- NOTE | 2024-03-01 12:32 | W.PN.CARDCBS ---
Addendum entered and electronically signed by Wade Johnson DO 03/01/24 16:45:
I saw and examined the patient.
The Director Of Informatics's note was reviewed and I agree with the note.
Comment:
Plan:
Eliquis held for hemorrhoids by primary service and Colorectal surgery consulted
IV heparin anticoagulation while off Eliquis given recent PVI a few days ago
Remains in sinus
Cont med tx of nonMI trop.
Cont supportive care and tx of COPD by primary service.
Original Note:
Today's Communication / Plan
-
Heparin gtt started due to Eliquis being on hold and recent PVI
Await input from CRS team
Impression / Plan
-
PCP: Sangita Dyson
Organizational Consultant: Sulaiamn Urbina
Cloth Folder Machine: Vernon Myles
Impression:
Presented 02/28/2024 with acute shortness of breath and abdominal discomfort
Acute hypoxic respiratory insufficiency
Abnormal troponin, peaked 1.0, suspect nonischemic myocardial injury secondary to recent PVI ablation
Leukocytosis
Constipation
Rectal pain
COPD with chronic nocturnal oxygen therapy
Paroxysmal atrial fibrillation/flutter
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
Chronic anticoagulation with Eliquis
Hypertension
Hyperlipidemia
Diverticulosis
Ischemic colitis status post colon resection
GERD
Nephrolithiasis
Arthritis
History of breast cancer status post bilateral lumpectomies, right radical mastectomy with XRT
Echo 09/19/2020: EF 62%, no regional wall motion abnormalities. Mild MR. Mild tricuspid regurgitation, PAP 38 mmHg
7-day outpatient monitor completed 12/03/2023: Sinus rhythm with paroxysmal atrial fibrillation/flutter approximately 15 1% burden. 11 episodes of atrial tachycardia, rare PAC and PVC
Plan:
-Patient to be seen by colorectal surgery service 03/01/24 and patient is being evaluated for hemorrhoids.
-Hospitalist attending stopped Eliquis, last dose was 02/29/24 AM. Started Heparin gtt early 03/01/24 AM.
-Patient remains in SR following PVI 02/26/24.
-Initial Troponin was 1.0 and trended down thereafter. Will manage as a nonischemic myocardial injury Troponin elevation
-Minimal right pleural effusion and pro-BNP of 1340. Overall seems to be improving with COPD treatment.
-Patient had repeat abdominal x-ray 03/01/24 and the partial SBO seen on CT from 02/29/24 was no longer seen.
HPI 02/29/2024:
Patient is a pleasant 83-year-old female with a past medical history significant for hypertension, hypercholesterolemia, COPD, symptomatic persistent atrial fibrillation, GERD, arthritis who presented to emergency department 02/28/2024 with acute
shortness of breath, abdominal pain and rectal discomfort. Patient underwent successful PVI ablation on 02/26/2024. She reports she felt well upon discharge and the following day. However on 02/28/2024 she awoke with acute shortness of breath. She
also reports she had mild abdominal discomfort with severe constipation and had difficulty having a bowel movement. She reports she strained to have a BM for several hours and had some mild blood on toilet paper after her bowel movement associated
with rectal pain. Both shortness of breath and rectal pain caused her to present to emergency department. Patient was found to have leukocytosis with elevated white count of 18.4. EKG showed sinus rhythm with incomplete right bundle branch block,
nonspecific ST-T wave abnormality. Abnormal troponin peak 1.0. Chest x-ray showed no acute cardiopulmonary disease with stable COPD/hyperinflation. Patient was provided nebulizer and started on IV steroids. She is also given cefepime IV.
At time of this evaluation patient continues to have mild shortness of breath at rest. Her biggest complaint is mild abdominal discomfort as well as significant rectal pain. She denies chest pain, dizziness, lightheadedness, palpitations
Progress Note - Organizational Consultant
Subjective
Date of Service: March 01, 2024
Ongoing rectal pain, but SOB improved
Objective
Labs:
03/01/24 04:41
03/01/24 04:40
Labs
Hgb 11.6 g/dL (12.0-16.0) L 03/01/24 04:41
Hct 34.9 % (37.0-47.0) L 03/01/24 04:41
Plt Count 160 10^3/uL (130-400) 03/01/24 04:41
APTT 36.0 Sec (23.4-35.0) H 03/01/24 09:02
Sodium 134 mmol/L (135-145) L 03/01/24 04:40
Potassium 4.0 mmol/L (3.5-5.1) 03/01/24 04:40
BUN 14 mg/dl (7-17) 03/01/24 04:40
Creatinine 0.6 mg/dL (0.6-1.0) 03/01/24 04:40
Glucose 168 mg/dl (70-99) H 03/01/24 04:40
Troponins
02/28/24 02/29/24 02/29/24
20:57 01:44 10:05
Troponin I 1.000 H* 0.913 H* 0.591 H*
Vital Signs and I&O:
Vital Signs
Temp Pulse Resp BP Pulse Ox
97.1 F 63 16 121/57 95
03/01/24 11:35 03/01/24 11:35 03/01/24 11:35 03/01/24 11:35 03/01/24 11:35
Vital Signs
Temp Pulse Resp BP Pulse Ox
97.1 F 63 16 121/57 95
03/01/24 11:35 03/01/24 11:35 03/01/24 11:35 03/01/24 11:35 03/01/24 11:35
Intake & Output
02/28/24 02/29/24 03/01/24 03/02/24
06:59 06:59 06:59 06:59
Intake Total 830 / 830
Output Total 1000 / 1000
Balance -170 / -170
Physical Exam
Physical Exam
GEN: NAD. AAOx3,
HEENT: EOMI
LUNGS: Wearing oxygen at 2 L NC.
CV: SR on tele
ABD: ND
EXT: No edema B/L
NEURO: Gross non-focal
SKIN: No rash
--- NOTE | 2024-03-01 13:11 | CON.CRS ---
Consultation
-
Date/Time Consultation Requested: 02/29/2024, 12:32
Date/Time Consultation Performed: 03/01/2024, 12:30
Requesting Provider: Osbaldo Gallardo MD
Performing Provider: Zac Mendez MD
Reason for Consultation: hemorrhoid
Medical History
-
Chief Complaint: rectal [id number] female with a past medical history of
History of Present Illness:
a sigmoid colon resection secondary to complicated sigmoid diverticulitis and 2009, presented to the ER on 02/28/2024 due to dyspnea on exertion. The patient states 2 days ago she was quite constipated and finally had a large bowel movement on
Thursday. There was blood in the stool in her rectal area was instantly tender. She had shortness of breath which she contributes to anxiety. Due to the shortness of breath and pain, she called the ambulance which brought her to the emergency
department. She states that she has never had any hemorrhoid problems over the years. She did have a sigmoid colon resection due to diverticulitis by Dr. Soto in 2009. Her last colonoscopy was in [address] Koch which showed end-to-end
colocolonic anastomosis, normal surgical appearing site. Minimal diverticulitis in the sigmoid colon. Nonbleeding internal hemorrhoids.
Due to some complaints of abdominal pain after she was admitted, she had an x-ray of the abdomen which showed findings concerning for to a developing small bowel obstruction in the left lower quadrant. She then underwent a CT which showed mild gas
distention in the cecum most suggestive of an adynamic ileus. An x-ray today shows the obstruction has resolved in the interval since previous exam.
Currently the patient states her pain has improved. She has been using Anusol suppositories. She states she has not seen any blood in her bowel movements. We have been consulted for further surgical opinion.
Past Medical History
Past Medical History: Other (COPD, atrial fibrillation/flutter, hypertension, hyperlipidemia, diverticulosis, GERD, history of ischemic colitis, nephrolithiasis, arthritis, history of breast cancer)
Past Surgical History: Other (Sigmoid colectomy secondary to sigmoid diverticulitis in [address] Soto, Left lumpectomy, right lumpectomy, appendectomy, cystoscopy)
Social History
Tobacco: Former Smoker
Alcohol: Occasional
Drug: None
Family History
Family History: Reviewed & Not Pertinent
Allergies / Home Medications
Allergy/AdvReac Type Severity Reaction Status Date / Time
amoxicillin Allergy Mild Nausea / Verified 02/26/24 07:15
Vomiting
levofloxacin [From Levaquin] Allergy Hives Verified 02/26/24 07:15
�Medication �Instructions �Recorded �Confirmed �Type
atorvastatin 10 mg tablet 10 mg PO HS High cholesterol 12/15/18 02/28/24 History
apixaban 5 mg tablet (Eliquis) 5 mg PO BID #60 tabs 09/01/20 02/28/24 Rx
albuterol sulfate 90 mcg/actuation 2 puff inhalation R Q6HPRN PRN sob 11/17/23 02/28/24 History
aerosol inhaler
budesonide 0.5 mg/2 mL suspension 0.5 mg inhalation R BID 11/17/23 02/28/24 History
for nebulization Lung/Breathing Issues
cholecalciferol (vitamin D3) 50 50 mcg PO DAILY Supplement 11/17/23 02/28/24 History
mcg (2,000 unit) tablet
ipratropium bromide 0.02 % 2.5 ml inhalation R TIDPRN PRN sob 11/17/23 02/28/24 History
solution for inhalation
ipratropium bromide 42 mcg (0.06 2 spray intranasal BIDPRN PRN 11/17/23 02/28/24 History
%) nasal spray runny nose
levalbuterol HCl 1.25 mg/3 mL 1.25 mg inhalation R TID 11/17/23 02/28/24 History
solution for nebulization Lung/Breathing Issues
metoprolol succinate 50 mg capsule 50 mg PO QPM BLOOD PRESSURE 12/08/23 02/28/24 History
sprinkle, ext. release 24 hr
diltiazem HCl 360 mg 360 mg PO DAILY 02/26/24 02/28/24 History
capsule,extended release 24 hr
pantoprazole 40 mg tablet,delayed 40 mg PO DAILY #30 tabs 02/26/24 02/28/24 Rx
release (Protonix)
Review of Systems
-
History Source: Patient
Respiratory: Trouble Breathing
Abdomen/GI: Other (Rectal pain)
A 10 point review of systems was completed, and was negative except as per HPI.
Physical Exam
Vital Signs
Temp 97.1 F 03/01/24 11:35
Pulse 61 03/01/24 13:00
Resp Rate 16 03/01/24 11:35
Blood pressure 121/57 03/01/24 11:37
SaO2 95 03/01/24 11:35
02/29/24 03/01/24 03/02/24
06:59 06:59 06:59
Actual Weight 72.1 kg 71.923 kg
Body Mass Index (BMI) 30.5
Lab Results / Allergies
03/01/24 04:41
03/01/24 04:40
WBC 12.4 10^3/uL (4.8-10.8) H 03/01/24 04:41
Hgb 11.6 g/dL (12.0-16.0) L 03/01/24 04:41
Hct 34.9 % (37.0-47.0) L 03/01/24 04:41
Plt Count 160 10^3/uL (130-400) 03/01/24 04:41
Abs Immat Gran (auto) 0.1 10^3/uL (0-0.05) H 02/28/24 14:43
Neutrophils % 90.0 % (42.2-75.2) H 02/28/24 14:43
Allergy/AdvReac Type Severity Reaction Status Date / Time
amoxicillin Allergy Mild Nausea / Verified 02/26/24 07:15
Vomiting
levofloxacin [From Levaquin] Allergy Hives Verified 02/26/24 07:15
Physical Exam
General: Well Developed, Well Nourished and No Apparent Distress
GI: Soft and Non Tender
Rectal: Other (There is an external hemorrhoid in the left posterior area that is nontender. There is no appearance of clot. On TANMAY, the patient has a normal sphincter tone and there is stool in the rectal vault. There is no evidence of bleeding)
Skin: Warm and Dry
Neuro: AO x 3
Data Reviewed
-
CT Scan: Report Reviewed by me, Discussed with Physician and Discussed with Patient
Labs: Labs Reviewed by me, Discussed with Physician and Discussed with Patient
Old Records: Reviewed
Assessment / Plan
-
Assessment: 83-year-old female with a history of sigmoid resection secondary to sigmoid diverticulitis with recent rectal pain now resolving with a normal rectal exam
Plan: Given her rectal exam, there is no role for surgery at this time. We do not appreciate any thrombosed external hemorrhoids or fissures. There was no blood noted on exam. The patient states she overall feels better. Recommend continuing to
use Anusol suppositories and Dibucaine ointment as needed. Okay to restart Carol from our standpoint. She does not require surgery. Will sign off. Please reconsult us if a further issue were to arise. Follow-up with GI for a colonoscopy as
she is likely due in a year if not sooner.
--- NOTE | 2024-03-01 13:59 | PTCARENOTE ---
D/C'd IVF and resumed regular diet as ordered.
[2024-03-01] MEDS: TOPROL XL 50 MG PO (17:33)
[2024-03-01 17:41] LABS: APTT 46.8 Sec (23.4-35.0)
--- NOTE | 2024-03-01 18:05 | PTCARENOTE ---
PTT drawn , protocol followed please see work list. will not obtain another PTT due to IV heparin drip being D/C'd at 1999 and Eliquis restarted.
--- NOTE | 2024-03-01 18:15 | PTCARENOTE ---
patient ambulates to BR with assist of 1, patient is able to void but patient stated that she needs to bear down several times to get all of the urine out. thi8s is not new for patient.
[2024-03-01] MEDS: ELIQUIS 5 MG PO (20:10)
[2024-03-01] MEDS: LIPITOR 10 MG PO (21:34)
[2024-03-02] VITALS (8 sets, daily range): BP systolic 100–141; BP diastolic 53–122
[2024-03-02 03:27] LABS: Hematocrit 35.3 % (37.0-47.0); Hemoglobin 11.9 g/dL (12.0-16.0); Mean Corp Hgb Conc. 33.7 g/dL (33.0-37.0); Mean Corpuscular Hgb 30.4 pg (27.0-31.0); Mean Corpuscular Volume 90.3 fL (81.0-99.0); Platelet Count 209 10^3/uL (130-400); Red Blood Cell Count 3.91 10^6/uL (4.20-5.40); Red Cell Dist. Width 13.2 % (11.5-14.5)
--- NOTE | 2024-03-02 03:52 | PTCARENOTE ---
Pt. has small amt. blood when wiping bottom last night; this morning had loose brown stool with no blood visible. Pt. states this happens a couple of times a week due to hemorrhoids. No N/V. Voiding destiny urine. VSS; SB (50's) on the monitor.
Currently sleeping.
[2024-03-02 04:00] LABS: Blood Urea Nitrogen 33 mg/dl (7-17); Calcium 9.4 mg/dl (8.4-10.2); Carbon Dioxide 17 mmol/L (22-30); Chloride 106 mmol/L (98-107); Estimated Creatinine Clearance 36 ml/min; Glucose 188 mg/dl (70-99); Potassium 4.3 mmol/L (3.5-5.1); Sodium 132 mmol/L (135-145); eGFR 50.48
[2024-03-02] MEDS: MAXIPIME 1000 MG IV ×3 (05:59→21:57)
[2024-03-02] MEDS: STERILE WATER FOR INJECTION 10 ML IV ×3 (06:00→21:57)
[2024-03-02] MEDS: FLAGYL 500 MG 100 IV ×3 (06:05→21:58)
[2024-03-02] MEDS: PULMICORT 0.5 MG INH ×2 (07:16→19:35)
[2024-03-02] MEDS: XOPENEX 1.25 MG INHALANT SOLUTION INH ×3 (07:16→19:35)
[2024-03-02] MEDS: CARDIZEM CD 360 MG PO (08:35)
[2024-03-02] MEDS: VITAMIN D3 (cholecalciferol) 50 MCG PO (08:35)
[2024-03-02] MEDS: PROTONIX 40 MG PO (08:35)
[2024-03-02] MEDS: ELIQUIS 5 MG PO ×2 (08:36→20:12)
[2024-03-02] MEDS: COLACE PO (08:37)
[2024-03-02] MEDS: MIRALAX PO (08:38)
[2024-03-02] MEDS: SENOKOT PO (08:38)
[2024-03-02] MEDS: LMX 4 1 APPLIC TOPICAL ×2 (09:08→20:12)
--- NOTE | 2024-03-02 10:57 | W.PN.HOSP.TC ---
Today's Communication/Plan
-
CW Abx
Follow Cr
PT/OT tx
Assessment / Plan
Assessment / Plan
#Acute rectal pain secondary to prolapsed hemorrhoid, proctitis and perirectal inflammation. Associated leukocytosis noted. Improving pain and leukocytosis with antibiotics and hemorrhoidal treatment. Colorectal surgery eval noted - they are not
seeing an external hemorrhoid -?possibly retracted .No surgical interventions
CW Abx and hemorrhoidal tx
#Abdominal distention with discomfort-CT abdomen pelvis raises concern for ileus versus partial small bowel obstruction. Had multiple BM today . Possible resolving ileus.Started on diet now.
# ESPERANZA -raise in Cr noted . Pt with ongoing retention issues need straight cath at times. CW bladder scan protocol
# UTI -enterococcus in urine noted -cw current abx and follow cx data
# COPD without exacerbation -Use as needed nebulizers.
# Atrial flutter/fibrillation
Continue Cardizem and metoprolol
cw Eliquis
# Hyperlipidemia-continue statin
# Hypertension-continue metoprolol
# History of breast cancer with bilateral lumpectomy
# Diverticulosis. History of GI bleed. History of ischemic colitis
# Nephrolithiasis
# Arthritis with history of pelvic fractures in the past
# Ex-smoker
# Patient wants to be full code
# DVT prophylaxis-Eliquis
Anticipated Discharge: 24 - 48 hours
Subjective/Interval History
-
Date of Service: March 02, 2024
Multiple BM with laxatives today
Rectal pain after exam by surgery
Still intermittent urinary retention issues
No fever or chills
Breath ok at rest , some SOB with exertion
Objective Data
-
Labs:
Laboratory Results
03/02/24
02:57
WBC 15.0 H
Hgb 11.9 L
Hct 35.3 L
Plt Count 209 D
Sodium 132 L
Potassium 4.3
Chloride 106
Carbon Dioxide 17 L
BUN 33 H
Creatinine 1.1 H
Glucose 188 H
Calcium 9.4
Vital Signs:
Vital Signs
Temp Pulse Resp BP Pulse Ox
97.6 F 54 20 124/67 98
03/02/24 08:12 03/02/24 08:14 03/02/24 08:12 03/02/24 08:14 03/02/24 08:12
I&O
03/01/24 03/02/24 03/03/24
06:59 06:59 06:59
Intake Total 830 / 830 508.5 / 508.5
Output Total 1000 / 1000 700 / 700
Balance -170 / -170 -191.5 / -191.5
Review of Systems
-
EENT: Denies Sore Throat
Respiratory: Denies Cough
Genitourinary: Denies Dysuria
Neuro: Denies Dizzy or Headache
Physical Exam
-
General: No Apparent Distress
HEENT: Moist Mucous Membranes
Respiratory: Clear to Auscultation
Cardiac: Regular Rhythm and S1/S2
GI: Soft, Normal Bowel Sounds and Tender (slight LLQ discomfort)
Neuro: AO x 3
Psych: Calm; Negative Confused or Agitated
Data Reviewed
-
Labs: Labs Reviewed by me
--- NOTE | 2024-03-02 12:52 | W.PN.CARDCBS ---
Addendum entered and electronically signed by Iban Arnett MD 03/02/24 15:17:
I saw and examined the patient.
The Supervisor Dimension Ware[employer]'s note was reviewed and I agree with the note.
Comment:
GEN: No distress, awake, Ox3
HEENT: supple, anicteric, mmm
LUNGS: scatt rhonchi
CV: Reg, S1/S2, 1/6 syst LSB, no gallop
ABD: soft, BS+, NT/ND
EXT: No edema
NEURO: Gross non-focal
SKIN: No rash
Plan:
Remains in sinus rhythm. Continue Eliquis. Continue metoprolol/diltiazem.
Continue treatment for UTI.
Continue neb treatments for COPD.
Abnormal troponin is nonischemic myocardial injury secondary to recent ablation.
Original Note:
Today's Communication / Plan
-
Stable on RA
Remains in SR
Eliquis restarted
Cardiology f/u arranged
Impression / Plan
-
PCP: Sangita Dyson
Appliance Service Representative: Sulaiman Urbina
Ski Edge Painter: Vernon Myles
Impression:
Presented 02/28/2024 with acute shortness of breath and abdominal discomfort
Acute hypoxic respiratory insufficiency
Abnormal troponin, peaked 1.0, suspect nonischemic myocardial injury secondary to recent PVI ablation
Leukocytosis
Constipation
Rectal pain
COPD with chronic nocturnal oxygen therapy
Paroxysmal atrial fibrillation/flutter
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
Chronic anticoagulation with Eliquis
Hypertension
Hyperlipidemia
Diverticulosis
Ischemic colitis status post colon resection
GERD
Nephrolithiasis
Arthritis
History of breast cancer status post bilateral lumpectomies, right radical mastectomy with XRT
Echo 09/19/2020: EF 62%, no regional wall motion abnormalities. Mild MR. Mild tricuspid regurgitation, PAP 38 mmHg
7-day outpatient monitor completed 12/03/2023: Sinus rhythm with paroxysmal atrial fibrillation/flutter approximately 15 1% burden. 11 episodes of atrial tachycardia, rare PAC and PVC
Plan:
-Brief interruption in Eliquis therapy for possible hemorrhoid surgery, but currently no surgical plans after CRS eval on 03/01/24. Outpatient dose of Eliquis 5 mg BID restarted 03/01/24 PM. Patient was bridged with Heparin gtt due to recent PVI.
-Patient remains in SR following PVI 02/26/24.
-Initial Troponin was 1.0 and trended down thereafter. Will manage as a nonischemic myocardial injury Troponin elevation
-Minimal right pleural effusion and pro-BNP of 1340. Overall seems to be improving with COPD treatment. Pulse ox 97% on RA as of 03/02/24.
-Patient had repeat abdominal x-ray 03/01/24 and the partial SBO seen on CT from 02/29/24 was no longer seen. Patient also reporting frequent, but formed BMs in the last 24 hours.
-Outpatient cardiology follow up arranged for 03/30/24 at 12:40 PM and appt on d/c instructions
HPI 02/29/2024: Patient is a pleasant 83-year-old female with a past medical history significant for hypertension, hypercholesterolemia, COPD, symptomatic persistent atrial fibrillation, GERD, arthritis who presented to emergency department 02/28/2024
with acute shortness of breath, abdominal pain and rectal discomfort. Patient underwent successful PVI ablation on 02/26/2024. She reports she felt well upon discharge and the following day. However on 02/28/2024 she awoke with acute shortness of
breath. She also reports she had mild abdominal discomfort with severe constipation and had difficulty having a bowel movement. She reports she strained to have a BM for several hours and had some mild blood on toilet paper after her bowel
movement associated with rectal pain. Both shortness of breath and rectal pain caused her to present to emergency department. Patient was found to have leukocytosis with elevated white count of 18.4. EKG showed sinus rhythm with incomplete right
bundle branch block, nonspecific ST-T wave abnormality. Abnormal troponin peak 1.0. Chest x-ray showed no acute cardiopulmonary disease with stable COPD/hyperinflation. Patient was provided nebulizer and started on IV steroids. She is also given
cefepime IV.
At time of this evaluation patient continues to have mild shortness of breath at rest. Her biggest complaint is mild abdominal discomfort as well as significant rectal pain. She denies chest pain, dizziness, lightheadedness, palpitations
Progress Note - Appliance Service Representative
Subjective
Date of Service: March 02, 2024
She feels better, she is moving her bowels more easily, less painful
Objective
Labs:
03/02/24 02:57
03/02/24 02:57
Labs
Hgb 11.9 g/dL (12.0-16.0) L 03/02/24 02:57
Hct 35.3 % (37.0-47.0) L 03/02/24 02:57
Plt Count 209 10^3/uL (130-400) D 03/02/24 02:57
APTT 46.8 Sec (23.4-35.0) H 03/01/24 17:22
Sodium 132 mmol/L (135-145) L 03/02/24 02:57
Potassium 4.3 mmol/L (3.5-5.1) 03/02/24 02:57
BUN 33 mg/dl (7-17) H 03/02/24 02:57
Creatinine 1.1 mg/dL (0.6-1.0) H 03/02/24 02:57
Glucose 188 mg/dl (70-99) H 03/02/24 02:57
Troponins
02/28/24 02/29/24 02/29/24
20:57 01:44 10:05
Troponin I 1.000 H* 0.913 H* 0.591 H*
Vital Signs and I&O:
Vital Signs
Temp Pulse Resp BP Pulse Ox
97.6 F 54 20 124/67 97
03/02/24 11:20 03/02/24 08:14 03/02/24 11:20 03/02/24 08:14 03/02/24 11:20
Vital Signs
Temp Pulse Resp BP Pulse Ox
97.6 F 54 20 124/67 97
03/02/24 11:20 03/02/24 08:14 03/02/24 11:20 03/02/24 08:14 03/02/24 11:20
Intake & Output
02/29/24 03/01/24 03/02/24 03/03/24
06:59 06:59 06:59 06:59
Intake Total 830 / 830 508.5 / 508.5
Output Total 1000 / 1000 700 / 700
Balance -170 / -170 -191.5 / -191.5
Physical Exam
Physical Exam
GEN: NAD. AAOx3,
HEENT: EOMI
LUNGS: No audible wheeze
CV: SR on tele
ABD: ND
EXT: No edema B/L
NEURO: Gross non-focal
SKIN: No rash
--- NOTE | 2024-03-02 13:03 | CM ---
CM following for DC planning needs.
Reviewed initial assessment. Pt. resides alone in a private, 2 story home w/ 1 PANCHO. Functionally, patient is indep. w/o use of any assisted device.
DC plan is for home w/ [facility]. Referral made/ accepted. Will update them on DC date.
CM to follow.
[2024-03-02] MEDS: FLUSH (NSS) 1 FLUSH IV (14:47)
[2024-03-02] MEDS: TOPROL XL 50 MG PO (17:09)
[2024-03-02] MEDS: LIPITOR 10 MG PO (21:57)
--- NOTE | 2024-03-03 00:11 | PTCARENOTE ---
AOx3; pleasant. Ambulatory in room w/ standby assist; steady gait. Pt voiding in BR approp; states 'small amt blood when wiping.' No c/o pain at this time. Tele- SB 50s. Currently in bed; call gabriel w/in reach.
[2024-03-03 03:49] VITALS: BP 124/69
[2024-03-03 04:41] LABS: Hematocrit 34.9 % (37.0-47.0); Hemoglobin 11.9 g/dL (12.0-16.0); Mean Corp Hgb Conc. 34.1 g/dL (33.0-37.0); Mean Corpuscular Hgb 30.3 pg (27.0-31.0); Mean Corpuscular Volume 88.8 fL (81.0-99.0); Mean Platelet Volume 11.5 fL (7.4-10.4); Platelet Count 228 10^3/uL (130-400); Red Blood Cell Count 3.93 10^6/uL (4.20-5.40); Red Cell Dist. Width 13.2 % (11.5-14.5); White Blood Cell Count 13.2 10^3/uL (4.8-10.8)
[2024-03-03 05:08] LABS: Blood Urea Nitrogen 30 mg/dl (7-17); Calcium 9.2 mg/dl (8.4-10.2); Carbon Dioxide 18 mmol/L (22-30); Chloride 107 mmol/L (98-107); Estimated Creatinine Clearance 40 ml/min; Glucose 138 mg/dl (70-99); Potassium 4.2 mmol/L (3.5-5.1); Sodium 133 mmol/L (135-145)
[2024-03-03] MEDS: STERILE WATER FOR INJECTION 10 ML IV (05:11)
[2024-03-03] MEDS: MAXIPIME 1000 MG IV (05:11)
[2024-03-03] MEDS: FLAGYL 500 MG 100 IV (05:11)
[2024-03-03 07:12] VITALS: BP 134/65
[2024-03-03] MEDS: VITAMIN D3 (cholecalciferol) 50 MCG PO (07:12)
[2024-03-03] MEDS: CARDIZEM CD 360 MG PO (07:12)
[2024-03-03] MEDS: PROTONIX 40 MG PO (07:12)
[2024-03-03] MEDS: ELIQUIS 5 MG PO (07:12)
[2024-03-03] MEDS: LMX 4 1 APPLIC TOPICAL (07:13)
[2024-03-03] MEDS: PULMICORT 0.5 MG INH (07:29)
[2024-03-03] MEDS: XOPENEX 1.25 MG INHALANT SOLUTION INH (07:29)
--- NOTE | 2024-03-03 09:45 | W.PN.HOSP.TC ---
Addendum entered and electronically signed by Osbaldo Gallardo MD 03/03/24 15:48:
No evidence of acute hypoxic respiratory failure.
COPD ruled out
Hyponatremia noted suspect volume and pain related
Original Note:
Today's Communication/Plan
-
DC planning
Assessment / Plan
Assessment / Plan
#Acute rectal pain secondary to prolapsed hemorrhoid, proctitis and perirectal inflammation. Associated leukocytosis noted. Improving pain and leukocytosis with antibiotics and hemorrhoidal treatment. Colorectal surgery eval noted - they are not
seeing an external hemorrhoid -?possibly retracted .No surgical interventions
CW Abx and hemorrhoidal tx
Switch to oral Augmenting on DC
Advised to follow with CRS after abx tx
#Abdominal distention with discomfort-CT abdomen pelvis raises concern for ileus versus partial small bowel obstruction. Resolved ileus . Tolerating diet and having BM
# ESPERANZA -raise in Cr noted . Pt had retention issues need straight cath at times. CW bladder scan protocol. Improving Cr . If no further retention will advise to follow with urology as OP
# UTI -enterococcus in urine noted -cw PCN on dc. Sensitivities noted.
# COPD without exacerbation -Use as needed nebulizers.
# Atrial flutter/fibrillation
Continue Cardizem and metoprolol
cw Eliquis
# Hyperlipidemia-continue statin
# Hypertension-continue metoprolol
# History of breast cancer with bilateral lumpectomy
# Diverticulosis. History of GI bleed. History of ischemic colitis
# Nephrolithiasis
# Arthritis with history of pelvic fractures in the past
# Ex-smoker
# Patient wants to be full code
# DVT prophylaxis-Eliquis
Check PT recommendations
Check bladder scan.
If able to ambulate fine and as well as no urinary retention will DC patient home later today.
More than 30 minutes spent in discharge including
Final examination of the patient
Summarizing hospital stay
Instructions for continuing care to all relevant caregivers
Preparation of discharge records, prescriptions, and referral forms
Total time spent (in minutes): 35
Anticipated Discharge: Today
Subjective/Interval History
-
Date of Service: March 03, 2024
Patient is feeling improved.
Tolerating diet without nausea vomiting or abdominal discomfort.
Rectal pain persists but has improved.
With the stopping of laxative regimen no further frequent bowel movements.
No dysuria. Able to urinate better. Per my discussion with RN no retention requiring straight catheterizations.
Patient sees urologist Dr. Cade. She had prior history of issues with retentive symptoms.
Objective Data
-
Labs:
Laboratory Results
03/03/24
04:03
WBC 13.2 H
Hgb 11.9 L
Hct 34.9 L
Plt Count 228
Sodium 133 L
Potassium 4.2
Chloride 107
Carbon Dioxide 18 L
BUN 30 H
Creatinine 1.0
Glucose 138 H
Calcium 9.2
Vital Signs:
Vital Signs
Temp Pulse Resp BP Pulse Ox
97.6 F 48 20 134/65 96
03/03/24 07:46 03/03/24 07:34 03/03/24 07:46 03/03/24 07:12 03/03/24 07:34
I&O
03/02/24 03/03/24 03/04/24
06:59 06:59 06:59
Intake Total 508.5 / 508.5
Output Total 700 / 700 800 / 800
Balance -191.5 / -191.5 -800 / -800
Review of Systems
-
Constitutional: Denies Fever or Chills
Respiratory: Denies Trouble Breathing
Cardiac: Denies Chest Pain
Neuro: Denies Dizzy
Physical Exam
-
General: No Apparent Distress
HEENT: Moist Mucous Membranes
Respiratory: Clear to Auscultation
Cardiac: Regular Rhythm and S1/S2
GI: Soft, Nontender, Nondistended and Normal Bowel Sounds
Neuro: AO x 3
Psych: Calm
Data Reviewed
-
Labs: Labs Reviewed by me
--- NOTE | 2024-03-03 09:58 | W.DS.TRANS ---
DC Summary - Security Shift Manager
-
Discharge Instructions:
Discharge Diagnosis/Procedures Proctitis, perirectal inflammation, symptomatic
hemorrhoids;ileus ;UTI with E fecalis;
Diet Low Residue
Additional Diets Low residue for a week and resume your usual
diet
Activity As tolerated
Driving Restrictions As prior to admission
Bathing Restrictions None
Other Services VN,PT
Instructions:
Stand-Alone Forms:
Changes to Home Medications: Yes
Discharge Medications:
DC Medications w/original date entered in [employer]
atorvastatin 10 mg tablet 10 mg PO HS High cholesterol 12/15/18
apixaban 5 mg tablet (Eliquis) 5 mg PO BID #60 tabs 09/01/20
albuterol sulfate 90 mcg/actuation aerosol inhaler 2 puff inhalation R Q6HPRN PRN sob 11/17/23
budesonide 0.5 mg/2 mL suspension for nebulization 0.5 mg inhalation R BID Lung/Breathing Issues 11/17/23
cholecalciferol (vitamin D3) 50 mcg (2,000 unit) tablet 50 mcg PO DAILY Supplement 11/17/23
ipratropium bromide 0.02 % solution for inhalation 2.5 ml inhalation R TIDPRN PRN sob 11/17/23
ipratropium bromide 42 mcg (0.06 %) nasal spray 2 spray intranasal BIDPRN PRN runny nose 11/17/23
levalbuterol HCl 1.25 mg/3 mL solution for nebulization 1.25 mg inhalation R TID Lung/Breathing Issues 11/17/23
metoprolol succinate 50 mg capsule sprinkle, ext. release 24 hr 50 mg PO QPM BLOOD PRESSURE 12/08/23
diltiazem HCl 360 mg capsule,extended release 24 hr 360 mg PO DAILY 02/26/24
pantoprazole 40 mg tablet,delayed release (Protonix) 40 mg PO DAILY #30 tabs 02/26/24
amoxicillin 875 mg-potassium clavulanate 125 mg tablet 1 tab PO BID #12 tabs 03/03/24
docusate sodium 100 mg capsule 100 mg PO DAILY #30 caps 03/03/24
hydrocortisone acetate 25 mg rectal suppository (Anusol-HC) 25 mg W[place] HS #12 ea 03/03/24
lidocaine 4 % topical cream (LMX 4) 1 applic topical BID #15 grams 03/03/24
polyethylene glycol 3350 17 gram oral powder packet (HealthyLax) 17 g PO DAILY PRN constipation #30 ea 03/03/24
Home Medication Changes
Medication-MiraLAX, lidocaine topical, Anusol HC, Colace, Augmentin
Pending Results: No
[2024-03-03 11:00] VITALS: BP 140/69
--- NOTE | 2024-03-03 11:20 | W.PN.CARDCBS ---
Addendum entered and electronically signed by Ambika Spangler DO 03/03/24 12:53:
I saw and examined the patient.
The Sales Representative [facility]'s note was reviewed and I agree with the note.
Comment: Patient seen and examined. Chart and telemetry reviewed. Offers no new complaints.
GEN: NAD. AAOx3,
LUNGS: Bronchovesicular breath sounds. Clear.
CV: Sinus rhythm. Positive S1-S2. No murmurs. SR on tele
ABD: ND
EXT: No edema B/L
Plan:
Paroxysmal atrial fibrillation/flutter status post PVI ablation 02/26/[address] Geiger
-remains in sinus rhythm.
-Continue metoprolol/diltiazem.
-Continue Eliquis.
-Groin site stable
-Abnormal troponin is nonischemic myocardial injury secondary to recent ablation.
Treatment of UTI per primary
Will sign off, recall if needed
Outpatient cardiac follow-up arranged
Original Note:
Today's Communication / Plan
-
Cardiology f/u arranged
Cont Eliquis
Impression / Plan
-
PCP: Sangita Dyson
General Superintendent: Sulaiman Urbina
Accounting Clerks Supervisor: Vernon Myles
Impression:
Presented 02/28/2024 with acute shortness of breath and abdominal discomfort
Acute hypoxic respiratory insufficiency
Abnormal troponin, peaked 1.0, suspect nonischemic myocardial injury secondary to recent PVI ablation
Leukocytosis
Constipation
Rectal pain
COPD with chronic nocturnal oxygen therapy
Paroxysmal atrial fibrillation/flutter
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
Chronic anticoagulation with Eliquis
Hypertension
Hyperlipidemia
Diverticulosis
Ischemic colitis status post colon resection
GERD
Nephrolithiasis
Arthritis
History of breast cancer status post bilateral lumpectomies, right radical mastectomy with XRT
Echo 09/19/2020: EF 62%, no regional wall motion abnormalities. Mild MR. Mild tricuspid regurgitation, PAP 38 mmHg
7-day outpatient monitor completed 12/03/2023: Sinus rhythm with paroxysmal atrial fibrillation/flutter approximately 15 1% burden. 11 episodes of atrial tachycardia, rare PAC and PVC
Plan:
-Hgb stable and overall rectal pain improved
-Patient had repeat abdominal x-ray 03/01/24 and the partial SBO seen on CT from 02/29/24 was no longer seen. Patient also reporting frequent, but formed BMs in the last 24 hours.
-From a CV standpoint, brief interruption in Eliquis therapy for possible hemorrhoid surgery, but currently no surgical plans after CRS eval on 03/01/24. Outpatient dose of Eliquis 5 mg BID restarted 03/01/24 PM. Patient was bridged with Heparin gtt due
to recent PVI.
-Patient remains in SR following PVI 02/26/24.
-Initial Troponin was 1.0 and trended down thereafter. Will manage as a nonischemic myocardial injury Troponin elevation
-Minimal right pleural effusion and pro-BNP of 1340. Overall seems to be improving with COPD treatment. Pulse ox 97% on RA as of 03/02/24.
-Outpatient cardiology follow up arranged for 03/30/24 at 12:40 PM and appt on d/c instructions
HPI 02/29/2024: Patient is a pleasant 83-year-old female with a past medical history significant for hypertension, hypercholesterolemia, COPD, symptomatic persistent atrial fibrillation, GERD, arthritis who presented to emergency department 02/28/2024
with acute shortness of breath, abdominal pain and rectal discomfort. Patient underwent successful PVI ablation on 02/26/2024. She reports she felt well upon discharge and the following day. However on 02/28/2024 she awoke with acute shortness of
breath. She also reports she had mild abdominal discomfort with severe constipation and had difficulty having a bowel movement. She reports she strained to have a BM for several hours and had some mild blood on toilet paper after her bowel
movement associated with rectal pain. Both shortness of breath and rectal pain caused her to present to emergency department. Patient was found to have leukocytosis with elevated white count of 18.4. EKG showed sinus rhythm with incomplete right
bundle branch block, nonspecific ST-T wave abnormality. Abnormal troponin peak 1.0. Chest x-ray showed no acute cardiopulmonary disease with stable COPD/hyperinflation. Patient was provided nebulizer and started on IV steroids. She is also given
cefepime IV.
At time of this evaluation patient continues to have mild shortness of breath at rest. Her biggest complaint is mild abdominal discomfort as well as significant rectal pain. She denies chest pain, dizziness, lightheadedness, palpitations
Progress Note - General Superintendent
Subjective
Date of Service: March 03, 2024
She feels well and wants to go home
Objective
Labs:
03/03/24 04:03
03/03/24 04:03
Labs
Hgb 11.9 g/dL (12.0-16.0) L 03/03/24 04:03
Hct 34.9 % (37.0-47.0) L 03/03/24 04:03
Plt Count 228 10^3/uL (130-400) 03/03/24 04:03
APTT 46.8 Sec (23.4-35.0) H 03/01/24 17:22
Sodium 133 mmol/L (135-145) L 03/03/24 04:03
Potassium 4.2 mmol/L (3.5-5.1) 03/03/24 04:03
BUN 30 mg/dl (7-17) H 03/03/24 04:03
Creatinine 1.0 mg/dL (0.6-1.0) 03/03/24 04:03
Glucose 138 mg/dl (70-99) H 03/03/24 04:03
Vital Signs and I&O:
Vital Signs
Temp Pulse Resp BP Pulse Ox
98 F 48 20 134/65 98
03/03/24 11:00 03/03/24 07:34 03/03/24 11:00 03/03/24 07:12 03/03/24 11:00
Vital Signs
Temp Pulse Resp BP Pulse Ox
98 F 48 20 134/65 98
03/03/24 11:00 03/03/24 07:34 03/03/24 11:00 03/03/24 07:12 03/03/24 11:00
Intake & Output
03/01/24 03/02/24 03/03/24 03/04/24
06:59 06:59 06:59 06:59
Intake Total 830 / 830 508.5 / 508.5
Output Total 1000 / 1000 700 / 700 800 / 800
Balance -170 / -170 -191.5 / -191.5 -800 / -800
Physical Exam
Physical Exam
GEN: NAD. AAOx3,
HEENT: EOMI
LUNGS: No audible wheeze
CV: SR on tele
ABD: ND
EXT: No edema B/L
NEURO: Gross non-focal
SKIN: No rash
--- NOTE | 2024-03-03 12:35 | CM ---
CM following for DC planning needs.
Met w/ patient at bedside. She is hopeful for DC today. She offers no concerns/ needs at this time. Has transport home.
Plan is for home, no needs.
--- NOTE | 2024-03-03 12:36 | CM ---
CM following for DC planning needs.
Met w/ patient at bedside. She is hopeful for DC to home today.
Reviewed DC plan for home-care resumption of care thru [facility]. Referral sent; updated them on DC date.
Pt. has transportation home.
Plan is for home w/ [facility].
--- NOTE | 2024-03-03 12:51 | PN.CDI ---
CDI
- -
CDI:
Physician Documentation Request
Admit Date: 03/01/24 09:48
Dear Doctor Sami,
Please review the following and provide your response in the progress notes.
Clinical Indicators:
Pt admitted with PSBO/Hemorrhoids/ UTI/COPD exacerbation?
Sodium levels are as below/Did get IVFs
02/28/24 02/29/24 03/01/24
14:43 06:13 04:40
Sodium 134 L 133 L 134 L
03/02/24 03/03/24
02:57 04:03
Sodium 132 L 133 L
Based on the above, could you clarify in the progress notes, the appropriate diagnosis, if significant, that supports the above abnormalities and additional evaluation, monitoring and/or treatment rendered:
Hyponatremia
Abnormal lab value only
Other
Use of terms such as suspected, likely, concern for, or probable (associated with a specific diagnosis that is being evaluated, monitored, or treated as if it exists) are acceptable and can be coded in the inpatient setting, when documented at the
time of discharge.
Thank you,
Melony Rizvi RN
CDI Specialist
[place] [facility]
Please use your independent medical judgment in providing your response.
--- NOTE | 2024-03-03 12:55 | PN.CDI ---
CDI
- -
CDI:
Physician Documentation Request
Admit Date: 03/01/24 09:48
Dear Doctor Sami,
Please review the following and provide your response in the progress notes.
Clinical Indicators:
Pt admitted with PSBO/ UTI/ Hemorrhoids/ COPD exacerbation /SOB
Documented per ED,' increasing SOB.. [place] well until this AM when her breathing became labored. Hx of COPD. Use O2 2L NC overnight only.. Duoneb, IV Decadron given.... FELIX (dyspnea on exertion), COPD exacerbation...'
H&P,'Shortness of breath/COPD exacerbation versus other/ Nebulizer treatments with levalbuterol and ipratropium...IV steroids Decadron 4 every 8...'
Progress note 02/28 & 03/01 ,' Suspected on admission-COPD exacerbation ...'
Progress notes 03/02 & 03/03 , ' COPD without exacerbation -Use as needed nebulizers....'
Please update the Status of COPD exacerbation :
COPD exacerbation -resolved
COPD exacerbation -ruled out
Other ( Please specify )
Use of terms such as suspected, likely, concern for, or probable (associated with a specific diagnosis that is being evaluated, monitored, or treated as if it exists) are acceptable and can be coded in the inpatient setting, when documented at the
time of discharge.
Thank you,
Melony Rizvi RN
CDI Specialist
[place] [facility]
Please use your independent medical judgment in providing your response.
--- NOTE | 2024-03-03 13:13 | PN.CDI ---
CDI
- -
CDI:
Physician Documentation Request
Admit Date: 03/01/24 09:48
Dear Doctor Sami,
Please review the following and provide your response in the progress notes.
Clinical Indicators:
Pt admitted with SOB/ COPD exacerbation/PSBO
Documented per EMS , ' ..Increased respiratory effort... Patient states she has had increased SOB all day ... Resp were 28,24...Initial 94% ...placed on 4 lPM via NC..'
Documented per H&P, ' ER with dyspnea on exertion..She had an ablation on Thursday she has had increasing shortness of breath since the procedure... Respiratory Distress (mild)...'
Cardiology consult,' No distress but winded during conversation was pursed lip breathing...LUNGS: Mildly diminished BS bilaterally, no wheezes/rales; wearing 2 lpm NC ...Still appears short of breath with pursed lipped breathing and some difficulty
with conversation. Currently on 2 L oxygen via nasal cannula. Wean as tolerated...'
Per vital signs Oxygen as low as 87%, Respirations as high as 34
Clarify which of the following accurately represents the patient's respiratory status:
Acute Hypoxic respiratory failure
Hypoxia only
Other
Additional information for Respiratory Failure:
Recognized criteria for Respiratory Failure (Source: [employer] [facility] Sep 2013)
ABGs: (1 or more) Symptoms Please indicate type if known
1. p)2 <60 or RA SPO2 <91% on RA 1. Tachypnea, SOB, dyspnea Hypoxic
2. pCO2 50 and pH <7.35 2. Use of accessory muscles Hypercapnic
3. pO2 decrease of pCO2 increase by 3. Pallor or cyanosis Hypoxic and Hypercapnic
10 mmHg from baseline if known 4. Anxiety or restlessness Unable to determine
5. Unable to speak in full sentences
Supplemental O2 of > 40% (5LPM) Intubation is not required
Use of terms such as suspected, likely, concern for, or probable (associated with a specific diagnosis that is being evaluated, monitored, or treated as if it exists) are acceptable and can be coded in the inpatient setting, when documented at the
time of discharge.
Thank you,
Melony Rizvi RN
CDI Specialist
[place] [facility]
Please use your independent medical judgment in providing your response.
--- NOTE | 2024-03-03 14:13 | PTCARENOTE ---
Pt with no c/o of any chest pain, sob, abd pain or lightheadedness or dizziness. Continues with discomfort in rectal area. Gets relief from lidocaine cream. Pt oob ad gustavo in the room and walked in the hallway with the nurse. Pt discharged to home
with her son in law. Discharge instructions given and reviewed with verbalization of good understanding.
== END 2024-03-03 15:00 | disposition home health service (06) | DRG 389 ==
LOC: IVU 09:48
PROVIDERS: Nurse Practitioner; Physician Assistant Medical; ADMITTING PHYSICIAN Hospitalist; ATTENDING PHYSICIAN Internal Medicine; CONSULT PHYSICIAN Surgery; EMERGENCY PHYSICIAN Emergency Medicine; FAMILY PHYSICIAN Internal Medicine; OTHER PHYSICIAN Internal Medicine Cardiovascular Disease
DX: K56.600 Partial intestinal obstruction, unspecified as to cause (principal); E87.1 Hypo-osmolality and hyponatremia; I48.19 Other persistent atrial fibrillation; I5A Non-ischemic myocardial injury (non-traumatic); N17.9 Acute kidney failure, unspecified; N39.0 Urinary tract infection, site not specified; I48.92 Unspecified atrial flutter; K62.89 Other specified diseases of anus and rectum; E78.00 Pure hypercholesterolemia, unspecified; R09.02 Hypoxemia; K64.8 Other hemorrhoids; D72.829 Elevated white blood cell count, unspecified; K59.00 Constipation, unspecified; R06.89 Other abnormalities of breathing; I10 Essential (primary) hypertension; B95.2 Enterococcus as the cause of diseases classified elsewhere; M19.90 Unspecified osteoarthritis, unspecified site; J44.9 Chronic obstructive pulmonary disease, unspecified; I07.1 Rheumatic tricuspid insufficiency; K21.9 Gastro-esophageal reflux disease without esophagitis; Z87.442 Personal history of urinary calculi; Z90.49 Acquired absence of other specified parts of digestive tract; Z85.3 Personal history of malignant neoplasm of breast; Z87.19 Personal history of other diseases of the digestive system; Z87.01 Personal history of pneumonia (recurrent); Z87.891 Personal history of nicotine dependence; Z11.52 Encounter for screening for COVID-19; Z82.49 Family history of ischemic heart disease and other diseases of the circulatory system; Z88.1 Allergy status to other antibiotic agents; Z88.0 Allergy status to penicillin; Z79.01 Long term (current) use of anticoagulants; Z79.51 Long term (current) use of inhaled steroids; Z80.49 Family history of malignant neoplasm of other genital organs; Z92.3 Personal history of irradiation
CPT/HCPCS: 71046; 74018; 74019; 74177; 80048; 80053; 81003; 81015; 83690; 83735; 83880; 84484; 85025; 85027; 85730; 87077; 87086; 87186; 87811; 93005; 93306; 94640; 96374; 97162; 97166; 99285; Q9967

== ENCOUNTER 2024-04-14 20:01 | Inpatient (IN) | payer MEDICARE, OTHER, SELFPAY ==
[2024-04-14] VITALS (8 sets, daily range): BP systolic 132–174; BP diastolic 59–94; BMI 28.2; BMI 26.9
[2024-04-14 17:18] LABS: % Basophils 0.3 % (0-2); % Eosinophils 1.4 % (0-6); % Immature Granulocytes 0.8 % (0-0.5); % Lymphocytes 22.1 % (20.5-51.1); % Monocytes 9.3 % (1.7-9.3); % Neutrophils 66.1 % (42.2-75.2); Absolute Eosinophils 0.1 10^3/uL (0-0.7); Absolute Immature Granulocytes 0.1 10^3/uL (0-0.05); Absolute Lymphocytes 1.5 10^3/uL (1.2-3.4); Absolute Monocytes 0.6 10^3/uL (0.1-0.6); Absolute Neutrophils 4.3 10^3/uL (1.4-6.5); Hematocrit 43.7 % (37.0-47.0); Hemoglobin 15.1 g/dL (12.0-16.0); Mean Corp Hgb Conc. 34.6 g/dL (33.0-37.0); Mean Corpuscular Hgb 29.3 pg (27.0-31.0); Mean Corpuscular Volume 84.9 fL (81.0-99.0); Mean Platelet Volume 11.1 fL (7.4-10.4); Nucleated Red Blood Cells % 0 %; Platelet Count 194 10^3/uL (130-400); Red Blood Cell Count 5.15 10^6/uL (4.20-5.40); Red Cell Dist. Width 12.6 % (11.5-14.5); White Blood Cell Count 6.6 10^3/uL (4.8-10.8)
[2024-04-14 17:37] LABS: COVID-19 Antigen Negative (Negative)
[2024-04-14 17:42] LABS: NT-proBNP 176 pg/ml
[2024-04-14 17:44] LABS: ALT (SGPT) 22 U/L (0-35); AST (SGOT) 31 U/L (14-36); Albumin 4.4 g/dl (3.5-5.0); Alkaline Phosphatase 85 U/L (38-126); Blood Urea Nitrogen 12 mg/dl (7-17); Carbon Dioxide 23 mmol/L (22-30); Chloride 100 mmol/L (98-107); Estimated Creatinine Clearance 62 ml/min; Glucose 116 mg/dl (70-99); Potassium 3.8 mmol/L (3.5-5.1); Sodium 135 mmol/L (135-145); Total Bilirubin 0.9 mg/dl (0.2-1.3); Total Protein 6.8 g/dl (6.3-8.2); eGFR > 60.00
[2024-04-14] MEDS: DUONEB 3 ML INH ×2 (19:04→21:28)
[2024-04-14] MEDS: MAXIPIME 2000 MG IV (19:05)
--- NOTE | 2024-04-14 19:07 | ED.GENMED ---
History of Present Illness
General
Chief Complaint: Breathing Problem
Source: patient
Time Seen by Provider: 04/14/24 18:27
Travel History
Have you had any contact with someone who has COVID-19?: No
Do you have any symptoms of coronavirus? Fever > 100 degrees, chills, cough, shortness of breath, sore throat, loss of taste or smell, muscle aches, or headache?: No
History of Present Illness
History of Present Illness:
83-year-old female with past medical history of atrial fibrillation, hypertension, hyperlipidemia, COPD (recently admitted in February for COPD exacerbation) presents to the emergency department for evaluation of shortness of breath, continued cough,
exertional dyspnea and fatigue. Patient was seen by her primary care provider earlier this week after she believes she was developing upper respiratory infection and was started on a Z-Bola. Patient reports minimal improvement with this. She notes
that she normally will wear 2 L via nasal cannula at nighttime but states today and yesterday felt as if she needed the oxygen continuously which is not normal for her. She denies any fevers, chills, rigors, chest pain, palpitations, diaphoresis,
lower extremity edema or any other concerns. She does report symptoms seem to be improved since arriving to the emergency.
Past History
Past History
ED Past Medical History: Arrthythmia (Atrial flutter), Cancer (Breast), COPD, GERD, HTN, Hypercholesterolemia and Other (Kidney stones, ischemic colitis, PNA, GI bleeding, Absces colon, Diverticulitis,)
ED Past Surgical History: Appendectomy and Bowel resection
Social History
Tobacco: Former smoker
Alcohol: Occasional
Drug: None
Personal:
Living: alone
Employment: Retired
Family History
Family History: Other (Noncontributory)
Review of Systems
Review of Systems
All Other Systems: ROS reviewed and negative except as documented in HPI and ROS
Phy Exam
Physical Exam
Physical Exam:
GENERAL: Alert , in no apparent distress
EYE: conjunctiva clear
NECK: Supple, no significant adenopathy.
ENT: o/p clr, mmm.
CARDIAC: Regular rate and rhythm
LUNGS: Restricted lung sounds throughout with intermittent wheeze, diminished lung sounds at the bases bilaterally, no accessory muscle use, speaking in full sentences
NEUROLOGICAL: Alert and oriented
SKIN: Warm and dry, skin intact.
MUSCULOSKELETAL: well perfused. No edema
PSYCH: Normal and appropriate interaction.
Scores
Heart Failure Risk
Heart Failure Risk Score: Not Applicable
Heart Score for Chest Pain Patients
STEMI patient?: Not applicable
Withdrawal Assessment of Alcohol
Withdrawal Assessment Completed?: Not applicable
Course
Orders/Labs/Results
Orders:
Orders
04/14/24 16:29
Electrocardiogram (*1) Urgent
Reason for Study: Shortness of Breath
EKG- Treatment ONCE
04/14/24 16:48
CR Chest - 2 Views Urgent
Comment:
Reason For Exam: cough, sob for 2 weeks. Hx of COPD
04/14/24 17:01
COVID-19 Antigen Urgent
Source: Nasal Swab
Complete Blood Count/With Diff Urgent
Comprehensive Metabolic Panel Urgent
NT-proBNP Urgent
Influenza A+B Rapid Molecular Urgent
OMAR Source: Nasal Swab
Specimen Description:
04/14/24 18:41
Ipratropium/Albuterol Sulfate [Duoneb] 3 ml INH R NOW ONE
MethylPREDNISolone PF [Solu-Medrol Pf] 60 mg IV NOW STA
04/14/24 18:43
Cefepime HCl [Maxipime] 2,000 mg IV NOW STA
04/14/24 18:56
Sterile Water [Sterile Water For Injection] 10 ml .ROUTE .STK-MED ONE
Abnormal Lab Results
04/14/24
17:01
MPV 11.1 H fL
(7.4-10.4)
Abs Immat Gran (auto) 0.1 H 10^3/uL
(0-0.05)
Immature Gran % 0.8 H %
(0-0.5)
Glucose 116 H mg/dl
(70-99)
04/14/24 17:01
04/14/24 17:01
Vital Signs
Initial and Last Documented VS:
Initial Vital Signs
BP
174/94
04/14/24 16:23
Last Documented Vital Signs
Temp Pulse Resp BP Pulse Ox
97.9 F 59 24 165/72 95
04/14/24 16:25 04/14/24 17:45 04/14/24 17:45 04/14/24 17:00 04/14/24 19:00
MDM/Problems Addressed
Differential Diagnosis Includes:
Pneumonia, COPD exacerbation, CHF, less concern for pulmonary embolism
MDM/Problems Addressed:
83-year-old female presenting to the emergency department for evaluation of shortness of breath, found to be hypoxic by EMS and on arrival to the emergency department. Currently on 2 L via nasal cannula with oxygen saturation between 93 and 96%.
Labs reveal no leukocytosis and are otherwise largely unremarkable. COVID and flu testing negative. Chest x-ray had already been ordered which appears to show a left side basilar pneumonia. Will cover with Mildred patient's history of COPD as
well as recent admission. I also ordered the patient some nebulizer treatments and Solu-Medrol for suspected COPD exacerbation caused by the. Plan to admit patient to hospitalist for continued evaluation and treat.
Chronic conditions affecting care: COPD
Acute Exacerbation and/or Progression of Chronic Illness: COPD
*Radiology
Radiology exam reviewed: preliminary read by ED provider (Left-sided pneumonia)
*Pulse Oximetry
Patient hypoxic: no
*Improvement Manager Interpretation
Rate: normal
Rhythm: sinus
*Critical Care Note
Total Time (30-74mins, 75-104mins- exclusive of procedures): Not Applicable
Data Reviewed
Review of Other/Old Records Reveals: Labs, Records, Radiology Studies and Discharge Summary
Source: patient and records
Patient Management
Discussion with other providers: Hospitalist
Escalation/DeEscalation of care consider admission/obs:
Hospitalist team is aware and accepts for continued evaluation and treatment.
ED Attending Note
-
Portions of this chart may have been created with voice recognition software.� Occasional wrong word or��sound alike� substitutions may have occurred due to the inherent limitations of voice recognition software.
Discharge Plan
Departure
Patient Disposition: Admit
Date of Disposition: 04/14/24
Time of Disposition: 19:07
Presentation/result/management discussed w/ accepting MD/DO: Hospitalist
Discharge Problem:
Pneumonia, Acute exacerbation of chronic obstructive pulmonary disease
Prescriptions:
No Action
atorvastatin 10 MG tablet
10 mg PO HS
Eliquis 5 MG tablet
5 mg PO BID Qty: 60 0RF
cholecalciferol (vitamin D3) 50 mcg (2,000 unit) Tablet
50 mcg PO DAILY
albuterol sulfate 90 mcg/actuation Hfa Aerosol Inhaler
2 puff INHALATION R Q6HPRN PRN (Reason: sob)
ipratropium bromide 42 mcg (0.06 %) [place],Non-Aerosol
2 spray INTRANASAL BIDPRN PRN (Reason: runny nose)
ipratropium bromide 0.02 % Solution
2.5 ml INHALATION R TID
levalbuterol HCl 1.25 mg/3 mL Solution For Nebulization
1.25 mg INHALATION R TID
budesonide 0.5 mg/2 mL Suspension For Nebulization
0.5 mg INHALATION R BID
metoprolol succinate 50 mg capsule,sprinkle,ER 24hr
50 mg PO QPM
diltiazem HCl 360 mg Capsule,Extended Release 24hr
360 mg PO DAILY
azithromycin 250 mg tablet
250 mg PO DAILY
Patient Comments:
04/14/2024: TAKE 2 TABLETS BY MOUTH TODAY, THEN TAKE 1 TABLET DAILY FOR 4 DAYS DIRECTED
benzonatate 100 mg capsule
100 mg PO TID PRN (Reason: cough)
codeine-guaifenesin 10-100 mg/5 mL liquid
10 ml PO Q4H PRN (Reason: cough)
Patient Comments:
04/14/2024: last filled 04/11/24, 120ml for 4 days from [id number]
Referrals:
Sangita Dyson MD [Family Provider] -
Interventions
Interventions:
*Risk Screen - Suicide Last Done: 04/14/24 19:01
*General Assessment Last Done: 04/14/24 16:25
*Neglect/Abuse Screening Last Done: 04/14/24 16:25
ED- Fall Risk Assessment Last Done: 04/14/24 19:01
*ED COVID-19 Vaccine History Last Done: 04/14/24 19:01
ED- Cardiac Assessment Last Done: 04/14/24 16:30
ED- Pulmonary Assessment Last Done: 04/14/24 16:30
Discharge Date and Time
Print Language: SOUTH [place]UDANESE
[2024-04-14] MEDS: SOLU-MEDROL PF 60 MG IV (19:10)
--- NOTE | 2024-04-14 19:34 | HPS.HSE ---
Family Physician
-
Family Physician: Sangita Dyson
Chief Complaint
-
shortness of breath,
History of Present Illness
83-year-old female past medical history of COPD uses 2 L at night at baseline, atrial flutter/fibrillation status post PVI ablation, hypertension, hyperlipidemia, breast cancer status post bilateral lumpectomy, diverticulosis, nephrolithiasis,
arthritis, pelvic fractures in the past, Enterococcus UTI, hemorrhoids, presenting with severe shortness of breath and productive cough over the past several days. She started off having a runny nose 3 days ago. She has had intermittent chills but
denies any headache or bodyaches or sore throat. She is having chest discomfort with coughing. Denies any nausea or vomiting or diarrhea.
She is a former smoker. She drinks alcohol 2-3 times a week.
Medical History
Past Medical History
Past Medical History: Reports Other ( COPD uses 2 L at night at baseline, atrial flutter/fibrillation status post PVI ablation, hypertension, hyperlipidemia, breast cancer status post bilateral lumpectomy, diverticulosis, nephrolithiasis, arthritis,
pelvic fractures in the past, Enterococcus UTI, hemorrhoids,)
Past Surgical History: Reports Other (Appendectomy and Bowel resection)
Social History
Tobacco: Former Smoker
Alcohol: None
Drug: None
Family History
Family History: Not pertinent
Allergies / Home Medications
Allergies reflects when Allergies were last updated in ulike.
Home Medications with original date entered in ulike
Allergy/Medication List:
Allergies
Allergy/AdvReac Type Severity Reaction Status Date / Time
amoxicillin Allergy Mild Nausea / Verified 02/26/24 07:15
Vomiting
levofloxacin [From Levaquin] Allergy Hives Verified 02/26/24 07:15
Home Medications
atorvastatin 10 mg tablet 10 mg PO HS High cholesterol 12/15/18
apixaban 5 mg tablet (Eliquis) 5 mg PO BID #60 tabs 09/01/20
albuterol sulfate 90 mcg/actuation aerosol inhaler 2 puff inhalation R Q6HPRN PRN sob 11/17/23
budesonide 0.5 mg/2 mL suspension for nebulization 0.5 mg inhalation R BID Lung/Breathing Issues 11/17/23
cholecalciferol (vitamin D3) 50 mcg (2,000 unit) tablet 50 mcg PO DAILY Supplement 11/17/23
ipratropium bromide 0.02 % solution for inhalation 2.5 ml inhalation R TID 11/17/23
ipratropium bromide 42 mcg (0.06 %) nasal spray 2 spray intranasal BIDPRN PRN runny nose 11/17/23
levalbuterol HCl 1.25 mg/3 mL solution for nebulization 1.25 mg inhalation R TID Lung/Breathing Issues 11/17/23
metoprolol succinate 50 mg capsule sprinkle, ext. release 24 hr 50 mg PO QPM BLOOD PRESSURE 12/08/23
diltiazem HCl 360 mg capsule,extended release 24 hr 360 mg PO DAILY 02/26/24
azithromycin 250 mg tablet 250 mg PO DAILY 04/14/24
benzonatate 100 mg capsule 100 mg PO TID PRN cough 04/14/24
codeine 10 mg-guaifenesin 100 mg/5 mL oral liquid 10 ml PO Q4H PRN cough 04/14/24
Review of Systems
-
History Source: Patient
A 12 point ROS was completed and negative except as noted: Yes
Constitutional: Reports No Symptoms
EENT: Reports No Symptoms
Respiratory: Reports See HPI
Cardiac: Reports See HPI
Abdomen/GI: Reports No Symptoms
: Reports No Symptoms
Musculoskeletal: Reports No Symptoms
Skin: Reports No Symptoms
Neurological: Reports No Symptoms
Endocrine: Reports No Symptoms
Hematologic/Lymphatic: Reports No Symptoms
Psych: Reports No Symptoms
Physical Exam
Vital Signs
Vital Signs
Temp Pulse Resp BP Pulse Ox
97.9 F 59 24 143/75 94
04/14/24 16:25 04/14/24 17:45 04/14/24 17:45 04/14/24 19:03 04/14/24 19:30
Physical Exam
General: Well Developed, Well Nourished and No Apparent Distress
HEENT: NormoCephalic, Moist mucous membranes and Atraumatic
Respiratory: Rhonchi (bilateral )
Cardiac: S1/S2 and Regular Rhythm; No Murmur or Rub
GI: Soft, Non Tender, Non Distended and Normal Bowel Sounds; No Organomegaly
Rectal: Deferred by Provider
Musculoskeletal: No Clubbing, No Cyanosis and No Edema
Skin: No Rash
Neuro: Nonfocal/grossly intact
Laboratory Results
-
04/14/24 17:01
04/14/24 17:01
Laboratory Results
Total Bilirubin 0.9 mg/dl (0.2-1.3) 04/14/24 17:01
AST 31 U/L (14-36) 04/14/24 17:01
ALT 22 U/L (0-35) 04/14/24 17:01
Alkaline Phosphatase 85 U/L (38-126) 04/14/24 17:01
Data Reviewed
-
Lab Data: Labs Reviewed by me
Old Records: Reviewed
Impression/Plan
-
IMPRESSION:
PLAN:
# COPD exacerbation
-DuoNebs every 6 hours
-Dexamethasone 4 mg every 8
-Continue budesonide
-Mucinex
-Uses 2 L at night at baseline, now at 3 L
# Bibasilar pneumonia
-Influenza and COVID-negative
-Chest x-ray shows increased bibasilar interstitial opacities
-Check sputum culture
-Ceftriaxone/azithromycin
Atrial fibrillation/flutter status post PVI ablation
-Continue diltiazem
-Continue metoprolol
-Continue Eliquis
Essential hypertension
Hyperlipidemia
-Continue statin
Breast cancer status post bilateral lumpectomy
History of diverticulosis
Nephrolithiasis
Arthritis, history of pelvic fractures
History of Enterococcus UTI
History of prolapsed hemorrhoids
Former smoker
Full code
DVT prophylaxis�heparin
Regular diet
[2024-04-14 20:50] LABS: Troponin I < 0.012 ng/ml
--- NOTE | 2024-04-14 21:00 | PTCARENOTE ---
Pt arrived to unit from ED and ambulated with x1 assist from stretcher to bed. BP on admission 161/69, HR 70. Pt denies pain at this time but reports difficulty breathing on 3L O2. Pt's O2 level increased to 4L and now saturating at 96%. Pt
oriented to room, call rios within reach.
[2024-04-14] MEDS: PULMICORT 0.5 MG INH (21:28)
[2024-04-14] MEDS: MUCINEX 600 MG PO (21:49)
[2024-04-14] MEDS: ELIQUIS 5 MG PO (21:49)
[2024-04-14] MEDS: LIPITOR 10 MG PO (21:49)
[2024-04-14] MEDS: TOPROL XL 50 MG PO (22:18)
[2024-04-14] MEDS: ZITHROMAX INFUSION 250 IV (22:18)
--- NOTE | 2024-04-14 23:00 | PTCARENOTE ---
Pt reports that she missed her evening dose of Toprol XL 50mg. [facility] [employer]ICAL COLLECTOR Karla Arellano notified, 1x dose ordered of Toprol XL 50mg and provided to pt. Repeat BP now 132/59, HR 64. Will continue to monitor.
[2024-04-15] MEDS: STERILE WATER FOR INJECTION 10 ML IV (02:47)
[2024-04-15] MEDS: DECADRON 4 MG IV ×3 (02:47→18:46)
[2024-04-15] MEDS: ROCEPHIN 1000 MG IV (02:47)
--- NOTE | 2024-04-15 04:44 | PTCARENOTE ---
Pt weaned down to 2.5L nasal cannula at 97%.
[2024-04-15 06:09] LABS: % Basophils 0.4 % (0-2); % Immature Granulocytes 0.9 % (0-0.5); % Lymphocytes 33.9 % (20.5-51.1); % Monocytes 1.8 % (1.7-9.3); Absolute Lymphocytes 0.8 10^3/uL (1.2-3.4); Absolute Neutrophils 1.4 10^3/uL (1.4-6.5); Hematocrit 46.4 % (37.0-47.0); Hemoglobin 15.8 g/dL (12.0-16.0); Mean Corp Hgb Conc. 34.1 g/dL (33.0-37.0); Mean Corpuscular Hgb 29.4 pg (27.0-31.0); Mean Corpuscular Volume 86.4 fL (81.0-99.0); Mean Platelet Volume 11.4 fL (7.4-10.4); Nucleated Red Blood Cells % 0 %; Platelet Count 208 10^3/uL (130-400); Red Blood Cell Count 5.37 10^6/uL (4.20-5.40); Red Cell Dist. Width 12.4 % (11.5-14.5)
[2024-04-15 06:42] LABS: Blood Urea Nitrogen 14 mg/dl (7-17); Calcium 9.9 mg/dl (8.4-10.2); Carbon Dioxide 26 mmol/L (22-30); Chloride 102 mmol/L (98-107); Estimated Creatinine Clearance 63 ml/min; Glucose 170 mg/dl (70-99); Sodium 139 mmol/L (135-145); eGFR > 60.00
[2024-04-15 07:07] LABS: White Blood Cell Count 2.2 10^3/uL (4.8-10.8)
[2024-04-15] MEDS: PULMICORT 0.5 MG INH ×2 (07:21→20:44)
[2024-04-15] MEDS: DUONEB 3 ML INH ×4 (07:21→20:44)
[2024-04-15 08:07] VITALS: BP 176/86
[2024-04-15] MEDS: CARDIZEM CD 360 MG PO (09:06)
[2024-04-15] MEDS: MUCINEX 600 MG PO ×2 (09:06→20:13)
[2024-04-15] MEDS: VITAMIN D3 (cholecalciferol) 50 MCG PO (09:07)
[2024-04-15] MEDS: ELIQUIS 5 MG PO ×2 (09:07→20:13)
[2024-04-15] MEDS: FLUSH (NSS) 1 FLUSH IV ×2 (09:09→18:47)
--- NOTE | 2024-04-15 09:27 | W.PN.HOSP.TC ---
Today's Communication/Plan
-
Continue steroids, nebs, antibiotics
Check procalcitonin
Add Acapella
PT/OT
Assessment / Plan
Assessment / Plan
Gen-AAOx3, NAD
HEENT-NC, AT, anicteric, clear oral mm
Neck-supple
CV-reg, no M, +S1/S2
Lungs-bilateral wheezes and rhonchi
Abd-soft, NT, ND
Ext-no edema
Musculoskeletal-no cyanosis, clubbing
Skin-warm and dry
Neuro-grossly non-focal
Psych-calm, cooperative
Acute on chronic hypoxic respiratory failure -suspect due to acute COPD exacerbation. Rule out pneumonia. Baseline uses 2 L of oxygen at nighttime but since becoming ill on Thursday she has used oxygen continuously at home. Currently on 3 L nasal
cannula oxygen, wean down as able.
Acute COPD exacerbation -continue nebs, steroids, antibiotics. Add Acapella.
Bibasilar infiltrates, rule out pneumonia -check procalcitonin. Currently on antibiotics for community-acquired pneumonia. Check sputum culture. Afebrile, white blood cell count normal on admission, leukopenia noted today. COVID and influenza
negative.
PCP started her on a azithromycin pack on Thursday evening.
Hyperglycemia -rule out DM2. Check hemoglobin A1c.
Paroxysmal atrial fibrillation/flutter -continue Eliquis.
Essential hypertension -blood pressure elevated. Resume home meds.
Hyperlipidemia -on atorvastatin.
Diverticulosis
Ischemic colitis -s/p colon resection.
History of breast cancer -s/p bilateral lumpectomies, right radical mastectomy with radiation.
Full code
Dispo -she lives alone at home. Will get PT and OT evaluation.
Anticipated Discharge: > 48 hours
Subjective/Interval History
-
Date of Service: April 15, 2024
Patient seen and examined. Still with shortness of breath but less than yesterday. Coughing.
Objective Data
-
Labs:
Laboratory Results
04/15/24
05:25
WBC 2.2 L*
Hgb 15.8
Hct 46.4
Plt Count 208
Sodium 139
Potassium 5.0 D
Chloride 102
Carbon Dioxide 26
BUN 14
Creatinine 0.6
Glucose 170 H
Calcium 9.9
Vital Signs:
Vital Signs
Temp Pulse Resp BP Pulse Ox
97.7 F 64 20 176/86 97
04/15/24 08:07 04/15/24 08:07 04/15/24 08:07 04/15/24 08:07 04/15/24 08:07
I&O
04/14/24 04/15/24 04/16/24
06:59 06:59 06:59
Intake Total 730 / 730
Balance 730 / 730
Review of Systems
-
History Source: Patient
All other systems: Reviewed and negative
[2024-04-15 10:09] LABS: Procalcitonin < 0.05 ng/ml (0.0-0.25)
--- NOTE | 2024-04-15 10:57 | CM ---
Met with patient at bedside; initial assessment completed
Pharmacy verified: [facility]
Patient lives alone in a multilevel home; 1 step to enter; 12 steps between floors; powder room on the 1st floor; 2nd floor bath has walk-in shower
PLOF: independent with ambulation, stairs, and ADLs; in her home she uses Chair Lift on stairs; does not go down the basement. Drives; Works part-time for a [employer]
DME: Pulse Oximeter; Oxygen 2 liters via N/C @ night; Oxygen Concentrator, Port[employer]anks (oxygen vendor is [employer])
Transportation: family or friend will provide ride home
SNF/Rehab utilization history: None
Home Health: recently discharged [facility]; if home health recommended preference is [facility]
Plan: discharge to home when medically stable; will monitor for needs
[2024-04-15 13:36] VITALS: PULSE 73; O2SAT 95
[2024-04-15 15:06] VITALS: O2SAT 93
[2024-04-15 15:38] VITALS: BP 127/60
[2024-04-15 15:55] VITALS: BMI 26.9
[2024-04-15] MEDS: TOPROL XL 50 MG PO (18:45)
[2024-04-15] MEDS: ZITHROMAX 500 MG PO (21:16)
[2024-04-15] MEDS: LIPITOR 10 MG PO (21:17)
[2024-04-15 23:14] VITALS: BP 136/65
[2024-04-16] MEDS: DECADRON 4 MG IV ×3 (01:36→16:22)
[2024-04-16 06:54] LABS: % Basophils 0.1 % (0-2); % Immature Granulocytes 0.4 % (0-0.5); % Lymphocytes 7.9 % (20.5-51.1); % Monocytes 2.2 % (1.7-9.3); % Neutrophils 89.4 % (42.2-75.2); Absolute Lymphocytes 0.8 10^3/uL (1.2-3.4); Absolute Monocytes 0.2 10^3/uL (0.1-0.6); Absolute Neutrophils 9.2 10^3/uL (1.4-6.5); Hematocrit 44.2 % (37.0-47.0); Hemoglobin 14.8 g/dL (12.0-16.0); Mean Corp Hgb Conc. 33.5 g/dL (33.0-37.0); Mean Corpuscular Hgb 29.1 pg (27.0-31.0); Mean Platelet Volume 11.6 fL (7.4-10.4); Nucleated Red Blood Cells % 0 %; Platelet Count 233 10^3/uL (130-400); Red Blood Cell Count 5.08 10^6/uL (4.20-5.40); Red Cell Dist. Width 12.2 % (11.5-14.5); White Blood Cell Count 10.3 10^3/uL (4.8-10.8)
[2024-04-16 07:40] VITALS: BP 147/65
[2024-04-16] MEDS: DUONEB 3 ML INH ×4 (07:51→20:31)
[2024-04-16] MEDS: PULMICORT 0.5 MG INH ×2 (07:51→20:31)
[2024-04-16] MEDS: CARDIZEM CD 360 MG PO (08:51)
[2024-04-16] MEDS: MUCINEX 600 MG PO ×2 (08:51→19:41)
[2024-04-16] MEDS: VITAMIN D3 (cholecalciferol) 50 MCG PO (08:52)
[2024-04-16] MEDS: ELIQUIS 5 MG PO ×2 (08:52→19:41)
--- NOTE | 2024-04-16 12:05 | W.PN.HOSP.TC ---
Today's Communication/Plan
-
Continue current care
Assessment / Plan
Assessment / Plan
Gen-AAOx3, NAD
HEENT-NC, AT, anicteric, clear oral mm
Neck-supple
CV-reg, no M, +S1/S2
Lungs-decreased BS B/L, mild wheezing
Abd-soft, NT, ND
Ext-no edema
Musculoskeletal-no cyanosis, clubbing
Skin-warm and dry
Neuro-grossly non-focal
Psych-calm, cooperative
Acute on chronic hypoxic respiratory failure -suspect due to acute COPD exacerbation. Rule out pneumonia. Baseline uses 2 L of oxygen at nighttime but since becoming ill on Thursday she has used oxygen continuously at home. Currently on 3 L nasal
cannula oxygen, wean down as able.
Acute COPD exacerbation -continue nebs, steroids, antibiotics. Add Acapella. PCP started her on a azithromycin pack on Thursday evening prior to admission.
Bibasilar infiltrates noted on CXR. Likely pneumonitis. Clinically doubt pneumonia. Procalcitonin <0.05. BNP 176, doubt congestive heart failure.
Impaired fasting glucose -hemoglobin A1c 6.0%. Recommend strict dietary adherence, exercise. Weight loss. Discussed with patient.
Paroxysmal atrial fibrillation/flutter -continue Eliquis.
Essential hypertension -blood pressure elevated. Resume home meds.
Hyperlipidemia -on atorvastatin.
Diverticulosis
Ischemic colitis -s/p colon resection.
History of breast cancer -s/p bilateral lumpectomies, right radical mastectomy with radiation.
Full code
Dispo -she lives alone at home. Did well with PT/OT.
Anticipated Discharge: > 48 hours
Subjective/Interval History
-
Date of Service: April 16, 2024
Patient seen/examined. Still with FELIX.
Objective Data
-
Labs:
Laboratory Results
04/16/24
05:50
WBC 10.3
Hgb 14.8
Hct 44.2
Plt Count 233
Vital Signs:
Vital Signs
Temp Pulse Resp BP Pulse Ox
97.6 F 66 16 147/65 92
04/16/24 07:40 04/16/24 11:10 04/16/24 11:10 04/16/24 07:40 04/16/24 08:00
I&O
04/15/24 04/16/24 04/17/24
06:59 06:59 06:59
Intake Total 730 / 730 1440 / 1440
Balance 730 / 730 1440 / 1440
Review of Systems
-
History Source: Patient
All other systems: Reviewed and negative
[2024-04-16 16:00] VITALS: BP 137/62
[2024-04-16] MEDS: TOPROL XL 50 MG PO (16:23)
[2024-04-16] MEDS: ZITHROMAX 500 MG PO (20:59)
[2024-04-16] MEDS: LIPITOR 10 MG PO (21:00)
[2024-04-16 23:05] VITALS: BP 133/58
[2024-04-17] MEDS: DECADRON 4 MG IV ×2 (02:06→08:40)
[2024-04-17 07:00] VITALS: BP 141/61
[2024-04-17] MEDS: DUONEB 3 ML INH ×4 (07:45→19:41)
[2024-04-17] MEDS: PULMICORT 0.5 MG INH ×2 (07:45→15:00)
[2024-04-17] MEDS: ELIQUIS 5 MG PO ×2 (08:39→21:18)
[2024-04-17] MEDS: MUCINEX 600 MG PO ×2 (08:39→21:18)
[2024-04-17] MEDS: CARDIZEM CD 360 MG PO (08:39)
[2024-04-17] MEDS: VITAMIN D3 (cholecalciferol) 50 MCG PO (08:40)
--- NOTE | 2024-04-17 09:04 | W.PN.HOSP.TC ---
Today's Communication/Plan
-
Change to oral steroids
MiraLAX
Wean oxygen as able
Assessment / Plan
Assessment / Plan
Gen-AAOx3, NAD
HEENT-NC, AT, anicteric, clear oral mm
Neck-supple
CV-reg, no M, +S1/S2
Lungs-decreased BS B/L, mild wheezing
Abd-soft, NT, ND
Ext-no edema
Musculoskeletal-no cyanosis, clubbing
Skin-warm and dry
Neuro-grossly non-focal
Psych-calm, cooperative
Acute on chronic hypoxic respiratory failure -suspect due to acute COPD exacerbation. Rule out pneumonia. Baseline uses 2 L of oxygen at nighttime but since becoming ill on Thursday she has used oxygen continuously at home. Oxygenation down to 2 L
nasal cannula, wean as able.
Acute COPD exacerbation -continue nebs, steroids, antibiotics, Acapella. PCP started her on a azithromycin pack on Thursday evening prior to admission. Day 3 of 3 for azithromycin. Will change to oral prednisone.
Bibasilar infiltrates noted on CXR. Likely pneumonitis. Clinically doubt pneumonia. Procalcitonin <0.05. BNP 176, doubt congestive heart failure.
Constipation -add MiraLAX.
Impaired fasting glucose -hemoglobin A1c 6.0%. Recommend strict dietary adherence, exercise. Weight loss. Discussed with patient.
Paroxysmal atrial fibrillation/flutter -continue Eliquis.
Essential hypertension -stable.
Hyperlipidemia -on atorvastatin.
Diverticulosis
Ischemic colitis -s/p colon resection.
History of breast cancer -s/p bilateral lumpectomies, right radical mastectomy with radiation.
Full code
Dispo -she lives alone at home. Did well with PT/OT. Anticipate discharge in 24 to 48 hours if she improves. Still with significant dyspnea on exertion.
Anticipated Discharge: 24 - 48 hours
Subjective/Interval History
-
Date of Service: April 17, 2024
Patient seen and examined. Complaining of constipation. Still with dyspnea on exertion.
Objective Data
-
Labs:
Laboratory Results
04/17/24
06:00
WBC Cancelled
Hgb Cancelled
Hct Cancelled
Plt Count Cancelled
Vital Signs:
Vital Signs
Temp Pulse Resp BP Pulse Ox
97.4 F 92 16 133/58 96
04/16/24 23:05 04/17/24 07:50 04/17/24 07:50 04/16/24 23:05 04/17/24 07:50
I&O
04/16/24 04/17/24 04/18/24
06:59 06:59 06:59
Intake Total 1440 / 1440 1200 / 1200
Balance 1440 / 1440 1200 / 1200
Review of Systems
-
History Source: Patient
All other systems: Reviewed and negative
[2024-04-17] MEDS: MIRALAX 17 GRAMS PO (09:32)
[2024-04-17] MEDS: DELTASONE 40 MG PO (09:32)
[2024-04-17 15:00] VITALS: BP 140/56
[2024-04-17] MEDS: TOPROL XL 50 MG PO (17:02)
[2024-04-17] MEDS: ZITHROMAX 500 MG PO (21:18)
[2024-04-17] MEDS: LIPITOR 10 MG PO (21:18)
[2024-04-17 23:22] VITALS: BP 150/57
[2024-04-18 07:35] VITALS: BP 149/64
[2024-04-18 08:21] VITALS: PULSE 62; O2SAT 98
[2024-04-18] MEDS: DUONEB 3 ML INH ×4 (08:23→19:35)
[2024-04-18] MEDS: PULMICORT 0.5 MG INH ×2 (08:23→19:35)
[2024-04-18] MEDS: CARDIZEM CD 360 MG PO (09:29)
[2024-04-18] MEDS: DELTASONE 50 MG PO (09:29)
[2024-04-18] MEDS: VITAMIN D3 (cholecalciferol) 50 MCG PO (09:29)
[2024-04-18] MEDS: MIRALAX 17 GRAMS PO (09:30)
[2024-04-18] MEDS: ELIQUIS 5 MG PO ×2 (09:30→20:23)
[2024-04-18] MEDS: MUCINEX 600 MG PO ×2 (09:30→20:23)
--- NOTE | 2024-04-18 13:20 | W.PN.HOSP.TC ---
Today's Communication/Plan
-
see A/P
Assessment / Plan
Assessment / Plan
Gen-AAOx3, NAD
HEENT-NC, AT, anicteric, clear oral mm
Neck-supple
CV-reg, no M, +S1/S2
Lungs-decreased BS B/L, wheezing resolved
Abd-soft, NT, ND
Ext-no edema
Musculoskeletal-no cyanosis, clubbing
Skin-warm and dry
Neuro-grossly non-focal
Psych-calm, cooperative, intact judgement
A/P:
# Acute on chronic hypoxic respiratory failure - suspect due to acute COPD exacerbation.
Baseline uses 2 L of oxygen at nighttime but since becoming ill, she has used oxygen continuously at home.
Oxygenation down to 2 L nasal cannula, wean as able.
# Acute COPD exacerbation
continue Duonebs, steroids with prednisone 50 mg daily, Acapella, Mucinex
Add chest percussion (pt does not like vest therapy)
s/p Azithromycin 3 days
Bibasilar infiltrates noted on CXR. Likely pneumonitis. Ruled out pneumonia with Procalcitonin <0.05. BNP 176, doubt congestive heart failure.
# Constipation
Cont MiraLAX.
Added Senokot-S and Dulcolax x1
# Impaired fasting glucose
hemoglobin A1c 6.0%.
Recommend strict dietary adherence, exercise. Weight loss. Discussed with patient.
# Paroxysmal atrial fibrillation/flutter
continue Eliquis.
# Essential hypertension -stable.
# Hyperlipidemia on atorvastatin.
# Diverticulosis
# Ischemic colitis s/p colon resection.
# History of breast cancer s/p bilateral lumpectomies, right radical mastectomy with radiation.
Full code
Anticipated Discharge: Within 24 hours
Subjective/Interval History
-
Date of Service: April 18, 2024
Objective Data
-
Vital Signs:
Vital Signs
Temp Pulse Resp BP Pulse Ox
36.5 C 82 16 149/64 99
04/18/24 07:35 04/18/24 11:48 04/18/24 11:48 04/18/24 07:35 04/18/24 11:48
I&O
04/17/24 04/18/24 04/19/24
06:59 06:59 06:59
Intake Total 1200 / 1200 1740 / 1740
Balance 1200 / 1200 1740 / 1740
Review of Systems
-
Respiratory: Reports Cough and Trouble Breathing
Data Reviewed
-
Diagnostic Radiology: Image personally visualized and interpreted and Report Reviewed by me
Labs: Labs Reviewed by me
[2024-04-18] MEDS: SENOKOT-S 1 TABLET PO ×2 (14:52→20:23)
[2024-04-18] MEDS: DULCOLAX 5 MG PO (14:52)
[2024-04-18 15:37] VITALS: BP 145/59
--- NOTE | 2024-04-18 15:59 | CM ---
Patient seen bedside.
Patient with oxygen 2 liters.
Patient has had [facility] in the past and would like to resume.
Patient requested a POC for home, easier to get around with,especially when she travels to the [facility].
Spoke with Jessica, will need script and MD.
Plan: home with VN.
[2024-04-18] MEDS: TOPROL XL 50 MG PO (18:11)
[2024-04-18] MEDS: LIPITOR 10 MG PO (20:23)
[2024-04-18 23:35] VITALS: BP 153/71
[2024-04-19] MEDS: ROBITUSSIN DM 5 ML PO (06:29)
[2024-04-19 06:31] LABS: % Basophils 0.3 % (0-2); % Immature Granulocytes 1.3 % (0-0.5); % Lymphocytes 10.3 % (20.5-51.1); % Monocytes 8.4 % (1.7-9.3); % Neutrophils 79.7 % (42.2-75.2); Absolute Immature Granulocytes 0.2 10^3/uL (0-0.05); Absolute Lymphocytes 1.2 10^3/uL (1.2-3.4); Absolute Neutrophils 9.5 10^3/uL (1.4-6.5); Hematocrit 41.6 % (37.0-47.0); Hemoglobin 14.2 g/dL (12.0-16.0); Mean Corp Hgb Conc. 34.1 g/dL (33.0-37.0); Mean Corpuscular Hgb 29.3 pg (27.0-31.0); Mean Corpuscular Volume 85.8 fL (81.0-99.0); Mean Platelet Volume 10.9 fL (7.4-10.4); Nucleated Red Blood Cells % 0 %; Platelet Count 251 10^3/uL (130-400); Red Blood Cell Count 4.85 10^6/uL (4.20-5.40); Red Cell Dist. Width 11.9 % (11.5-14.5)
[2024-04-19 06:54] LABS: Blood Urea Nitrogen 18 mg/dl (7-17); Calcium 9.2 mg/dl (8.4-10.2); Carbon Dioxide 26 mmol/L (22-30); Chloride 101 mmol/L (98-107); Estimated Creatinine Clearance 63 ml/min; Glucose 127 mg/dl (70-99); Potassium 4.6 mmol/L (3.5-5.1); Sodium 136 mmol/L (135-145); eGFR > 60.00
[2024-04-19] MEDS: DUONEB 3 ML INH ×4 (07:35→20:26)
[2024-04-19] MEDS: PULMICORT 0.5 MG INH ×2 (07:35→20:26)
[2024-04-19] MEDS: CARDIZEM CD 360 MG PO (07:38)
[2024-04-19] MEDS: SENOKOT-S 1 TABLET PO ×2 (07:38→19:17)
[2024-04-19] MEDS: DELTASONE 50 MG PO (07:39)
[2024-04-19] MEDS: MUCINEX 600 MG PO ×2 (07:39→19:17)
[2024-04-19] MEDS: ELIQUIS 5 MG PO ×2 (07:39→19:17)
[2024-04-19] MEDS: VITAMIN D3 (cholecalciferol) 50 MCG PO (07:39)
[2024-04-19] MEDS: MIRALAX 17 GRAMS PO (07:40)
[2024-04-19 07:52] VITALS: BP 137/79
--- NOTE | 2024-04-19 13:13 | VNURNOTE ---
Home Health Liaison met with patient at 1200 to discuss [facility] nurse/therapy, visits, schedule and homebound status. Patient is agreeable and understands that visits at home will be 2-3 x per week to assess and teach medical management.
[facility] contact information provided. Patient is aware that [facility] will contact her for start of care in 1-2 days after discharge from .
[facility] referral completed in [facility].
[2024-04-19] MEDS: DUONEB INH (15:31)
--- NOTE | 2024-04-19 15:42 | CM ---
Patient for d/c home with [facility].
patient has home oxygen thru [facility] and would like a POC (she travels and is active), she only has they portable tanks at this time.
Spoke with [facility], will need to send script and MD note to [facility] and it will be delivered in a few days, she jono not have for d/c.
Plan: home with [facility]
[2024-04-19 15:45] VITALS: BP 107/63
[2024-04-19] MEDS: DULCOLAX 10 MG RECTAL (16:17)
--- NOTE | 2024-04-19 17:25 | W.PN.HOSP.TC ---
Today's Communication/Plan
-
Oral steroid tape
Bowel regimen
Assessment / Plan
Assessment / Plan
A/P:
# Acute on chronic hypoxic respiratory failure - suspect due to acute COPD exacerbation.
Baseline uses 2 L of oxygen at nighttime but since becoming ill, she has used oxygen continuously at home.
Oxygenation down to 2 L nasal cannula, wean as able.
Patient will require portable O2 concentrator for travel and active life stile
# Acute COPD exacerbation
continue Duonebs, steroids with prednisone 50 mg daily, Acapella, Mucinex
Add chest percussion (pt does not like vest therapy)
s/p Azithromycin 3 days
Bibasilar infiltrates noted on CXR. Likely pneumonitis. Ruled out pneumonia with Procalcitonin <0.05. BNP 176, doubt congestive heart failure.
# Constipation
Cont MiraLAX.
Added Senokot-S and Dulcolax x1
# Impaired fasting glucose
hemoglobin A1c 6.0%.
Recommend strict dietary adherence, exercise. Weight loss. Discussed with patient.
# Paroxysmal atrial fibrillation/flutter
continue Eliquis.
# Essential hypertension -stable.
# Hyperlipidemia on atorvastatin.
# Diverticulosis
# Ischemic colitis s/p colon resection.
# History of breast cancer s/p bilateral lumpectomies, right radical mastectomy with radiation.
Full code
Anticipated Discharge: 24 - 48 hours
Subjective/Interval History
-
Date of Service: April 19, 2024
Objective Data
-
Labs:
Laboratory Results
04/19/24
05:59
WBC 12.0 H
Hgb 14.2
Hct 41.6
Plt Count 251
Sodium 136
Potassium 4.6
Chloride 101
Carbon Dioxide 26
BUN 18 H
Creatinine 0.6
Glucose 127 H
Calcium 9.2
Vital Signs:
Vital Signs
Temp Pulse Resp BP Pulse Ox
98.0 F 59 18 107/63 99
04/19/24 15:45 04/19/24 15:45 04/19/24 15:45 04/19/24 15:45 04/19/24 15:45
I&O
04/18/24 04/19/24 04/20/24
06:59 06:59 06:59
Intake Total 1739 / 1739
Balance 0 / 1739
Physical Exam
-
General: Well Developed and No Apparent Distress
HEENT: Normocephalic, Atraumatic and Moist Mucous Membranes
Respiratory: Clear to Auscultation
Cardiac: Regular Rhythm and S1/S2; Negative Murmur, Rub or Gallop
GI: Soft, Nontender, Nondistended and Normal Bowel Sounds; Negative Organomegaly
Rectal: Deferred by Provider
Musculoskeletal: No Clubbing, No Cyanosis and No Edema
Skin: Negative Rash
Neuro: Nonfocal/Grossly Intact
[2024-04-19] MEDS: TOPROL XL 50 MG PO (18:37)
[2024-04-19] MEDS: LIPITOR 10 MG PO (21:37)
[2024-04-19 23:00] VITALS: BP 154/65
[2024-04-20 00:32] VITALS: BP 154/65
--- NOTE | 2024-04-20 06:30 | PTCARENOTE ---
pt had 2 moderate BM's last night
[2024-04-20 07:00] VITALS: BP 153/60
[2024-04-20] MEDS: PULMICORT 0.5 MG INH (07:55)
[2024-04-20] MEDS: DUONEB 3 ML INH ×2 (07:55→11:51)
[2024-04-20] MEDS: ELIQUIS 5 MG PO (08:33)
[2024-04-20] MEDS: CARDIZEM CD 360 MG PO (08:33)
[2024-04-20] MEDS: MUCINEX 600 MG PO (08:33)
[2024-04-20] MEDS: DELTASONE 50 MG PO (08:33)
[2024-04-20] MEDS: VITAMIN D3 (cholecalciferol) 50 MCG PO (08:35)
[2024-04-20] MEDS: SENOKOT-S PO (08:35)
[2024-04-20] MEDS: MIRALAX PO (08:35)
--- NOTE | 2024-04-20 09:56 | CM ---
Addendum entered by Fiorella Franks 04/20/24 12:26:
IMM benefit explained; form signed @ 1220
Addendum entered by Fiorella Franks 04/20/24 12:12:
Met with patient @ bedside to discuss discharge plan
Friend will provide transport home
Personal Portable O2 tank at the bedside
Plan: Discharge to [facility]
Original Note:
Order and Progress Note from Attending faxed to [facility] for Portable Concentrator
--- NOTE | 2024-04-20 12:01 | W.DS.TRANS ---
DC Summary - [employer]anchise [employer]
-
Discharge Instructions:
Sleep Apnea Risk Intermediate
Discharge Diagnosis/Procedures COPD exacerbation
Diet Regular
Instructions:
Stand-Alone Forms:
Changes to Home Medications: Yes
Discharge Medications:
DC Medications w/original date entered in [facility] [employer]
atorvastatin 10 mg tablet 10 mg PO HS High cholesterol 12/15/18
apixaban 5 mg tablet (Eliquis) 5 mg PO BID #60 tabs 09/01/20
albuterol sulfate 90 mcg/actuation aerosol inhaler 2 puff inhalation R Q6HPRN PRN sob 11/17/23
budesonide 0.5 mg/2 mL suspension for nebulization 0.5 mg inhalation R BID Lung/Breathing Issues 11/17/23
cholecalciferol (vitamin D3) 50 mcg (2,000 unit) tablet 50 mcg PO DAILY Supplement 11/17/23
ipratropium bromide 0.02 % solution for inhalation 2.5 ml inhalation R TID Lung/Breathing Issues 11/17/23
ipratropium bromide 42 mcg (0.06 %) nasal spray 2 spray intranasal BIDPRN PRN runny nose 11/17/23
levalbuterol HCl 1.25 mg/3 mL solution for nebulization 1.25 mg inhalation R TID Lung/Breathing Issues 11/17/23
metoprolol succinate 50 mg capsule sprinkle, ext. release 24 hr 50 mg PO QPM BLOOD PRESSURE 12/08/23
diltiazem HCl 360 mg capsule,extended release 24 hr 360 mg PO DAILY Heart Disease/Condition 02/26/24
benzonatate 100 mg capsule 100 mg PO TID PRN cough 04/14/24
codeine 10 mg-guaifenesin 100 mg/5 mL oral liquid 10 ml PO Q4H PRN cough 04/14/24
guaifenesin 600 mg tablet, extended release 12 hr 600 mg PO Q12 #60 tabs 04/20/24
polyethylene glycol 3350 17 gram oral powder packet (HealthyLax) 17 g PO DAILY #30 ea 04/20/24
prednisone 10 mg tablets in a dose pack 10 mg PO DIRECTED #48 ea 04/20/24
sennosides 8.6 mg-docusate sodium 50 mg tablet (Stool Softener-Stimulant Laxative) 1 tab PO DAILY #30 tabs 04/20/24
Home Medication Changes
Steroid taper.
Bowel regimen
Pending Results: No
[2024-04-20 12:25] VITALS: BP 157/69
== END 2024-04-20 14:06 | disposition home health service (06) | DRG 190 ==
LOC: 4 WEST ACU 20:01
PROVIDERS: Hospitalist; Internal Medicine; ADMITTING PHYSICIAN Hospitalist; ATTENDING PHYSICIAN Internal Medicine; EMERGENCY PHYSICIAN Emergency Medicine; FAMILY PHYSICIAN Internal Medicine
DX: J44.1 Chronic obstructive pulmonary disease with (acute) exacerbation (principal); J96.21 Acute and chronic respiratory failure with hypoxia; I48.92 Unspecified atrial flutter; J44.0 Chronic obstructive pulmonary disease with (acute) lower respiratory infection; J20.9 Acute bronchitis, unspecified; K59.00 Constipation, unspecified; I48.0 Paroxysmal atrial fibrillation; I10 Essential (primary) hypertension; E78.00 Pure hypercholesterolemia, unspecified; R73.01 Impaired fasting glucose; K21.9 Gastro-esophageal reflux disease without esophagitis; Z79.01 Long term (current) use of anticoagulants; Z79.899 Other long term (current) drug therapy; Z85.3 Personal history of malignant neoplasm of breast; Z87.891 Personal history of nicotine dependence; Z99.81 Dependence on supplemental oxygen
CPT/HCPCS: 71046; 80048; 80053; 83036; 83735; 83880; 84145; 84484; 85025; 87070; 87205; 87502; 87811; 93005; 94640; 94667; 94668; 96374; 96375; 97116; 97166; 97535; 99285

== ENCOUNTER → 2024-12-08 11:32 | Outpatient (REF) | payer MEDICARE, OTHER, SELFPAY | LOC: REG 11:32 | PROVIDERS: ATTENDING PHYSICIAN Ophthalmology; FAMILY PHYSICIAN Internal Medicine | DX: H02.411 Mechanical ptosis of right eyelid (principal); H25.813 Combined forms of age-related cataract, bilateral | CPT/HCPCS: 36415; 86041 ==

== ENCOUNTER → 2025-06-22 14:04 | Outpatient (REF) | payer MEDICARE, OTHER, SELFPAY | LOC: RAD 14:04 | PROVIDERS: ATTENDING PHYSICIAN Nurse Practitioner Family; FAMILY PHYSICIAN Internal Medicine | DX: R06.09 Other forms of dyspnea (principal) | CPT/HCPCS: 71046 ==